=== PATIENT | female | born 1960 | race Caucasian/White ===

== ENCOUNTER 2017-08-01 10:37 | Emergency (ER) | payer OTHER, SELFPAY | END 2017-08-01 12:52 | disposition home or self-care (01) | PROVIDERS: Emergency Provider Nurse Practitioner; Visit Provider Nurse Practitioner | DX: M10.9 Gout, unspecified (principal); F17.210 Nicotine dependence, cigarettes, uncomplicated; Z88.0 Allergy status to penicillin | CPT/HCPCS: 96372; 99202 ==

== ENCOUNTER → 2017-08-02 | Outpatient (CLI) | payer OTHER, SELFPAY | PROVIDERS: Visit Provider Surgery | DX: R19.7 Diarrhea, unspecified (principal); Z86.010 Personal history of colon polyps; Z01.812 Encounter for preprocedural laboratory examination | CPT/HCPCS: 36415; 80053; 85025; 93005 ==

== ENCOUNTER 2017-08-13 16:15 | Emergency (ER) | payer OTHER, SELFPAY ==
[2017-08-13 16:20] VITALS: BP 114/73; PULSE 70; RESP 20; TEMP 36.6; O2SAT 98; BMI 30.8
[2017-08-14 00:04] LABS: Alanine Aminotransferase 46 U/L (12-78); Albumin Level 3.5 gm/dL (3.4-5.0); Alkaline Phosphatase 74 U/L (46-116); Anion Gap 12.8 mEq/L (5-15); Aspartate Amino Transferase 49 U/L (15-37); Bilirubin,Total 0.3 mg/dL (0.2-1.0); Blood Urea Nitrogen 9 mg/dL (7-18); Calcium 8.9 mg/dL (8.5-10.1); Carbon Dioxide 28 mmol/L (21.0-32.0); Chloride 103 mmol/L (98-107); Estimated Glomerular Filt Rate 42 ml/min (>60); GFR (African American) 51 ML/MIN (>60); Globulin 3.6 gm/dl (1.3-3.2); Glucose 123 mg/dL (74-106); Sodium 141 mmol/L (136-145); Total Protein,Serum 7.1 gm/dL (6.4-8.2)
[2017-08-14 00:11] LABS: Potassium 2.8 mmoL/L (3.5-5.1)
[2017-08-14 00:50] VITALS: BP 133/88; PULSE 63; O2SAT 99
[2017-08-14 01:07] LABS: Basophils % 0.6 % (0.1-2.0); Eosinophils % 2.1 % (0.1-12.0); Hematocrit 45.7 % (37.0-47.0); Lymphocytes % 31.6 K/mm3 (10-50); Mean Corpuscular HGB Conc 32.9 g/dL (31.8-35.4); Mean Corpuscular Hemoglobin 27.7 pg (27.0-31.2); Mean Corpuscular Volume 84.2 fl (81-99); Monocytes % 5.4 % (1.7-9.3); Neutrophils % 60.3 % (37.0-80.0); Platelet Count 236 K/mm3 (142-424); Red Blood Count 5.42 M/mm3 (4.20-5.40); Red Cell Distribution Width 14.6 % (11.5-17.5); White Blood Count 9.3 K/mm3 (4.8-10.8)
[2017-08-14 01:08] LABS: Basophils # 0.1 K/mm3 (0-0.2); Eosinophils # 0.2 K/mm3 (0.0-0.4); Monocytes # 0.5 K/mm3 (0.1-1.0); Neutrophils # 5.6 K/mm3 (1.8-7.8)
[2017-08-14 10:39] LABS: ABG Base Excess 1.8 mmol/L (-2.4-2.3); ABG HCO3 26.5 mmhg (22.0-26.0); ABG Oxygen Saturation 96 % (90-100); ABG PH 7.41 mmol/L (7.35-7.45); ABG PO2 79.4 mmhg (80-100); ABG TCO2 27.8 mmhg (23-27)
[2017-08-14 10:40] LABS: Allen's Test Acceptable; Carboxyhemoglobin 3.5 (0.0-5.0); Oxygen ROOM AIR %; Source Right Radial
--- NOTE | 2017-08-14 14:19 | PC.NURSE ---
All late entry data was entered per down time procedure.
== END 2017-08-13 17:48 | disposition home or self-care (01) ==
LOC: ER 22:49
PROVIDERS: Emergency Provider Emergency Medicine; Family Provider Emergency Medicine; PCP Family Medicine
DX: T59.811A Toxic effect of smoke, accidental (unintentional), initial encounter; J70.5 Respiratory conditions due to smoke inhalation; F17.210 Nicotine dependence, cigarettes, uncomplicated; Y92.89 Other specified places as the place of occurrence of the external cause; Z79.899 Other long term (current) drug therapy
CPT/HCPCS: 80053; 82375; 82803; 85025; 99282

== ENCOUNTER 2017-09-23 12:03 | Emergency (ER) | payer OTHER, SELFPAY ==
[2017-09-23 12:25] VITALS: BP 110/68; PULSE 78; RESP 18; TEMP 36.4; O2SAT 98; BMI 30.9
[2017-09-23 12:25] LABS: Apearance,Urine Clear (Clear); Bilirubin,Urine 1+ (Negative); Blood, Urine 2+ (Negative); Color,Urine Yellow (Yellow); Glucose,Urine (UA) Negative (Negative); Ketones,Urine Negative (Negative); Protein,Urine 1+ (Negative)
[2017-09-23 12:26] LABS: UTC Leukocyte Esterase,Urine 1+ (Negative); UTC Nitrate,Urine Negative (Negative); Urobilinogen,Urine 0.2 EU/dl (0.2)
--- NOTE | 2017-09-23 12:29 | HMH.EDUTC ---
[facility] Disposition Clinical Impression: Hypokalemia, Abnormal laboratory test Disposition: Still a Patient Condition on Discharge: Good Referrals: Benjamín Arguello MD [Primary Care Provider] - Time of Disposition: 13:23 Medical Decision Making - Medical Records Medical records reviewed: Yes: I reviewed the patient's medical records. Vital Signs: 09/23/17 12:25 Temperature 97.5 F L Temperature Source Temporal Artery Scan Pulse Rate [Right Radial] 78 Respiratory Rate 18 Blood Pressure [Right Arm] 110/68 Blood Pressure Mean [Right Arm] 82 Blood Pressure Source [Right Arm] Automatic Cuff Blood Pressure Position [Right Arm] Sitting 02 Sat by Pulse Oximetry 98 Oxygen Delivery Method Room Air - Lab Data Lab Results 09/23/17 12:19: Urine Color Yellow, Urine Appearance Clear, Urine pH 5.0, Ur Specific [place] 1.020, Urine Protein 1+, Urine Glucose (UA) Negative, Urine Ketones Negative, Urine Blood 2+, Urine Nitrate Negative, Urine Bilirubin 1+ A, Urine Urobilinogen 0.2, Ur Leukocyte Esterase 1+ A, Influenza Type A Ag Negative, Influenza Type B Ag Negative 09/23/17 12:40: Potassium 2.8 L* Result diagrams: 09/23/17 12:40 Orders (Tests/Meds): ORDERS Category Date Time Status Chest XR 2 view (NOT portable) [XR chest 2V] Stat Exams 09/23/17 12:32 Taken - Physician Consults Physician Consulted: Dr Oliveors ER physician Time: 13:16 Reason -: Other (Lab results) Comment/Response: Patient Lab result of K-2.8 that was called by lab Dr Oliveros recommended sending patient to ER for Potassium and further treatment, Report given to Dr Oliveros and Santana HERNDON and patient informed of recommedation for ER transfer and she agreed with transfer - Niraj Inquiry Pt receiving controlled substance: No Niraj was queried for this patient: No - Reevaluation(s) Time: 13:19 Reevaluation #1: Patient was sent to ER after consulting and speaking with Dr Oliveros due to Potassium of 2.8 that was called to [facility] by lab. Patient report given and patient transfered to ER for further treatment and evaluation [facility] HPI - General Stated complaint: Fever, Congestion, - History of Present Illness Provider Complaint: Patient state that she has been having fever and congestion along with body aches States that she has been feeling weak and like she may have bronchitits State that she has recently been on Potassium because her Potassium was low and she wants to have that checked too State that over all she just feels bad - Related Data Home Medications Medication Instructions Recorded Confirmed acetaminophen 300 mg-codeine 30 mg 1 tab PO TID PRN tab 08/31/17 tablet bupropion HCl 75 mg tablet 75 mg PO BID tab 08/31/17 cholecalciferol (vitamin D3) 1,000 1,000 unit PO QDAY cap 08/31/17 unit capsule ergocalciferol (vitamin D2) 50,000 50,000 unit PO QWEEK 08/31/17 unit capsule hydroxyzine pamoate 50 mg capsule 50 mg PO TID-QID PRN 08/31/17 lamotrigine 25 mg tablet 25 mg PO QDAY tab 08/31/17 potassium chloride ER 20 mEq 10 meq PO QDAY 08/31/17 tablet,extended release(part/cryst) trazodone 50 mg tablet 50 mg PO QHS PRN 08/31/17 Previous Rx's Medication Instructions Recorded albuterol sulfate HFA 90 2 puff INHALATION Q6H 30 Days #6.7 08/31/17 mcg/actuation aerosol inhaler g logimafesnkiapr-rfpbqbwernylumh-AS 5 ml PO Q6H PRN #180 ml 08/31/17 2 mg-30 mg-10 mg/5 mL syrup prednisone 20 mg tablet 20 mg PO BID #10 tab 08/31/17 Allergies Allergy/AdvReac Type Severity Reaction Status Date / Time penicillin G Allergy Mild Verified 08/31/17 13:43 [facility] History I have reviewed the patient's past medical history: Yes Laterality Cases: Right: Lumpectomy Amputation: No Fractures: No - *Social History Smoking Status: Current every day smoker Tobacco Type: cigarettes # Packs/Day (cigarettes): 1 Alcohol Intake: never Substance Use Type: denies use *Family Hx:: Diabetes, Coronary Artery Disease
--- NOTE | 2017-09-23 12:32 | ED_ITS ---
[facility] [place] Disposition Clinical Impression: Hypokalemia, Abnormal laboratory test Disposition: Still a Patient Condition on Discharge: Good Referrals: Benjamín Arguello MD [Primary Care Provider] - Time of Disposition: 13:23 Medical Decision Making - Medical Records Medical records reviewed: Yes: I reviewed the patient's medical records. Vital Signs: 09/23/17 12:25 Temperature 97.5 F L Temperature Source Temporal Artery Scan Pulse Rate [Right Radial] 78 Respiratory Rate 18 Blood Pressure [Right Arm] 110/68 Blood Pressure Mean [Right Arm] 82 Blood Pressure Source [Right Arm] Automatic Cuff Blood Pressure Position [Right Arm] Sitting 02 Sat by Pulse Oximetry 98 Oxygen Delivery Method Room Air - Lab Data Lab Results 09/23/17 12:19: Urine Color Yellow, Urine Appearance Clear, Urine pH 5.0, Ur Specific [place] 1.020, Urine Protein 1+, Urine Glucose (UA) Negative, Urine Ketones Negative, Urine Blood 2+, Urine Nitrate Negative, Urine Bilirubin 1+ A, Urine Urobilinogen 0.2, Ur Leukocyte Esterase 1+ A, Influenza Type A Ag Negative , Influenza Type B Ag Negative 09/23/17 12:40: Potassium 2.8 L* Result diagrams: 09/23/17 12:40 Orders (Tests/Meds): ORDERS Category Date Time Status Chest XR 2 view (NOT portable) [XR chest 2V] Stat Exams 09/23/17 12:32 Taken - Physician Consults Physician Consulted: Dr Oliveros ER physician Time: 13:16 Reason -: Other (Lab results) Comment/Response: Patient Lab result of K-2.8 that was called by lab Dr Oliveros recommended sending patient to ER for Potassium and further treatment, Report given to Dr Oliveros and Santana HERNDON and patient informed of recommedation for ER transfer and she agreed with transfer - Niraj Inquiry Pt receiving controlled substance: No Niraj was queried for this patient: No - Reevaluation(s) Time: 13:19 Reevaluation #1: Patient was sent to ER after consulting and speaking with Dr Oliveros due to Potassium of 2.8 that was called to [facility] by lab. Patient report given and patient transfered to ER for further treatment and evaluation [facility] [place] HPI - General Stated complaint: Fever, Congestion, - History of Present Illness Provider Complaint: Patient state that she has been having fever and congestion along with body aches States that she has been feeling weak and like she may have bronchitits State that she has recently been on Potassium because her Potassium was low and she wants to have that checked too State that over all she just feels bad - Related Data Home Medications Medication Instructions Recorded Confirmed acetaminophen 300 mg-codeine 30 mg 1 tab PO TID PRN tab 08/31/17 tablet bupropion HCl 75 mg tablet 75 mg PO BID tab 08/31/17 cholecalciferol (vitamin D3) 1,000 1,000 unit PO QDAY cap 08/31/17 unit capsule ergocalciferol (vitamin D2) 50,000 50,000 unit PO QWEEK 08/31/17 unit capsule hydroxyzine pamoate 50 mg capsule 50 mg PO TID-QID PRN 08/31/17 lamotrigine 25 mg tablet 25 mg PO QDAY tab 08/31/17 potassium chloride ER 20 mEq 10 meq PO QDAY 08/31/17 tablet,extended release(part/cryst) trazodone 50 mg tablet 50 mg PO QHS PRN 08/31/17 Previous Rx's Medication Instructions Recorded albuterol sulfate HFA 90 2 puff INHALATION Q6H 30 Days #6.7 08/31/17 mcg/actuatio
--- NOTE | 2017-09-23 12:32 | XR_ITS ---
XR chest 2V INDICATION: Congestion ORDERING PHYSICIAN: Kelly Dumas PATIENT AGE: 57 years FINDINGS: The cardiovascular structures are unremarkable. No mediastinal shift or hilar mass is evident. The lungs are well expanded and clear bilaterally. The costophrenic sulci are sharp. No significant bony anomalies are apparent. IMPRESSION: Negative chest.
[2017-09-23 13:03] LABS: UTC Influenza A Antigen Negative (Negative); UTC Influenza B Antigen Negative (Negative)
[2017-09-23 13:08] LABS: Potassium 2.8 mmoL/L (3.5-5.1)
[2017-09-23 13:25] VITALS: BP 136/67; PULSE 75; RESP 20; TEMP 36.7; O2SAT 100; BMI 31.0
--- NOTE | 2017-09-23 13:33 | HMH.EDWEAK ---
ED Disposition Clinical Impression: Hypokalemia, Abnormal laboratory test Disposition: Still a Patient Condition on Discharge: Good Instructions: Urinary Tract Infection Additional Instructions: followup with Dr Arguello, return for increased urinary issues, fever or chills not improved Prescriptions: Ciprofloxacin [Cipro 250mg/5ml Oral Susp] 250 mg PO BID #10 cap Potassium Chloride [K-Tab ER 20 mEq] 20 meq PO DAILY #30 tab Referrals: Benjamín Arguello MD [Primary Care Provider] - - Critical Care Critical Care Time: No Attestation: On 09/23/17, the high probability of a clinically significant, sudden or life threatening deterioration of the following system(s) required my full and direct attention, intervention and personal management. The time I documented below is in addition to time spent performing reported procedures but includes the following listed in this critical care notation. Medical Decision Making Vital Signs: 09/23/17 12:25 09/23/17 13:25 Temperature 97.5 F L 98.1 F Temperature Source Temporal Artery Scan Oral Pulse Rate [Right Radial] 78 75 Respiratory Rate 18 20 Blood Pressure [Right Arm] 110/68 136/67 Blood Pressure Mean [Right Arm] 82 90 Blood Pressure Source [Right Arm] Automatic Cuff Automatic Cuff Blood Pressure Position [Right Arm] Sitting Sitting 02 Sat by Pulse Oximetry 98 100 Oxygen Delivery Method Room Air Room Air - Lab Data Lab Results 09/23/17 12:19: Urine Color Yellow, Urine Appearance Clear, Urine pH 5.0, Ur Specific [place] 1.020, Urine Protein 1+, Urine Glucose (UA) Negative, Urine Ketones Negative, Urine Blood 2+, Urine Nitrate Negative, Urine Bilirubin 1+ A, Urine Urobilinogen 0.2, Ur Leukocyte Esterase 1+ A, Influenza Type A Ag Negative, Influenza Type B Ag Negative 09/23/17 12:40: Potassium 2.8 L* 09/23/17 14:20: WBC 15.4 H, RBC 5.15, Hgb 14.4, Hct 42.3, MCV 82.1, MCH 27.9, MCHC 34.0, RDW 14.6, Plt Count 218, MPV 9.3, Neut % (Auto) 83.5 H, Lymph % (Auto) 11.0, [place] % (Auto) 5.1, Eos % (Auto) 0.3, Baso % (Auto) 0.1, Neut # (Auto) 12.9 H, Lymph # (Auto) 1.7, [place] # (Auto) 0.8, Eos # (Auto) 0.0, Baso # (Auto) 0.0 Result diagrams: 09/23/17 14:20 09/23/17 12:40 Orders (Tests/Meds): ED MEDICATIONS Generic Name Dose Route Start Last Admin Trade Name Freq PRN Reason Stop Dose Admin Potassium Chloride/Water 100 mls @ 50 mls/hr 09/23/17 13:34 09/23/17 14:13 Potassium Chloride 20meq/100ml Ivpb IV 09/23/17 15:33 50 mls/hr ONCE ONE Administration ORDERS Category Date Time Status Chest XR 2 view (NOT portable) [XR chest 2V] Stat Exams 09/23/17 12:32 Taken CBC [Complete Blood Count Auto Diff] Stat Lab 09/23/17 14:20 Results Blood Culture Stat Micro 09/23/17 14:20 Received - Niraj Inquiry Pt receiving controlled substance: No Niraj was queried for this patient: No Weakness HPI - General Chief complaint: Weakness Stated complaint: Fever, Congestion, Mode of Arrival: Family Vehicle Source of Information: Patient Limitations: No Limitations Description of Symptoms (Recalled from ER Triage Doc. by RN): pt sent to er for low potassium of 2.8 and body aches all over. - History of Present Illness MD Complaint: generalized weakness, lack of energy (this what she feels like wehn her potassium is low, she has not taken any for 3 weeks found to be 2.8) Duration: constant Location: generalized Migration: none Severity: moderate Quality: aching Relieving factors: none Exacerbating factors: none Context: other (she also has congestion and low back pain/flank pain) - Related Data Home Medications Medication Instructions Recorded Confirmed acetaminophen 300 mg-codeine 30 mg 1 tab PO TID PRN tab 08/31/17 tablet bupropion HCl 75 mg tablet 75 mg PO BID tab 08/31/17 cholecalciferol (vitamin D3) 1,000 1,000 unit PO QDAY cap 08/31/17 unit capsule ergocalciferol (vitamin D2) 50,000 50,000 unit PO QWEEK 08/31/17 unit capsule
--- NOTE | 2017-09-23 13:37 | ED_ITS ---
ED Disposition Clinical Impression: Hypokalemia, Abnormal laboratory test Disposition: Still a Patient Condition on Discharge: Good Instructions: Urinary Tract Infection Additional Instructions: followup with Dr Arguello, return for increased urinary issues, fever or chills not improved Prescriptions: Ciprofloxacin [Cipro 250mg/5ml Oral Susp] 250 mg PO BID #10 cap Potassium Chloride [K-Tab ER 20 mEq] 20 meq PO DAILY #30 tab Referrals: Benjamín Arguello MD [Primary Care Provider] - - Critical Care Critical Care Time: No Attestation: On 09/23/17, the high probability of a clinically significant, sudden or life threatening deterioration of the following system(s) required my full and direct attention, intervention and personal management. The time I documented below is in addition to time spent performing reported procedures but includes the following listed in this critical care notation. Medical Decision Making Vital Signs: 09/23/17 12:25 09/23/17 13:25 Temperature 97.5 F L 98.1 F Temperature Source Temporal Artery Scan Oral Pulse Rate [Right Radial] 78 75 Respiratory Rate 18 20 Blood Pressure [Right Arm] 110/68 136/67 Blood Pressure Mean [Right Arm] 82 90 Blood Pressure Source [Right Arm] Automatic Cuff Automatic Cuff Blood Pressure Position [Right Arm] Sitting Sitting 02 Sat by Pulse Oximetry 98 100 Oxygen Delivery Method Room Air Room Air - Lab Data Lab Results 09/23/17 12:19: Urine Color Yellow, Urine Appearance Clear, Urine pH 5.0, Ur Specific [place] 1.020, Urine Protein 1+, Urine Glucose (UA) Negative, Urine Ketones Negative, Urine Blood 2+, Urine Nitrate Negative, Urine Bilirubin 1+ A, Urine Urobilinogen 0.2, Ur Leukocyte Esterase 1+ A, Influenza Type A Ag Negative , Influenza Type B Ag Negative 09/23/17 12:40: Potassium 2.8 L* 09/23/17 14:20: WBC 15.4 H, RBC 5.15, Hgb 14.4, Hct 42.3, MCV 82.1, MCH 27.9, MCHC 34.0, RDW 14.6, Plt Count 218, MPV 9.3, Neut % (Auto) 83.5 H, Lymph % (Auto ) 11.0, [place] % (Auto) 5.1, Eos % (Auto) 0.3, Baso % (Auto) 0.1, Neut # (Auto) 12.9 H, Lymph # (Auto) 1.7, [place] # (Auto) 0.8, Eos # (Auto) 0.0, Baso # (Auto) 0.0 Result diagrams: 09/23/17 14:20 09/23/17 12:40 Orders (Tests/Meds): ED MEDICATIONS Generic Name Dose Route Start Last Admin Trade Name Freq PRN Reason Stop Dose Admin Potassium Chloride/Water 100 mls @ 50 mls/hr 09/23/17 13:34 09/23/17 14:13 Potassium Chloride 20meq/100ml Ivpb IV 09/23/17 15:33 50 mls/hr ONCE ONE Administration ORDERS Category Date Time Status Chest XR 2 view (NOT portable) [XR chest 2V] Stat Exams 09/23/17 12:32 Taken CBC [Complete Blood Count Auto Diff] Stat Lab 09/23/17 14:20 Results Blood Culture Stat Micro 09/23/17 14:20 Received - Niraj Inquiry Pt receiving controlled substance: No Niraj was queried for this patient: No Weakness HPI - General Chief complaint: Weakness Stated complaint: Fever, Congestion, Mode of Arrival: Family Vehicle Source of Information: Patient Limitations: No Limitations Description of Symptoms (Recalled from ER Triage Doc. by RN): pt sent to er for low potassium of 2.8 and body aches all over. - History of Present Illness MD Complaint: generalized weakness, lack of energy (this what she feels like wehn her potassium is low, she has not taken any for 3 weeks found to be 2.8) Duration: constant
[2017-09-23 14:53] LABS: Basophils % 0.1 % (0.1-2.0); Eosinophils % 0.3 % (0.1-12.0); Hematocrit 42.3 % (37.0-47.0); Hemoglobin 14.4 g/dL (12.2-16.2); Lymphocytes # 1.7 K/mm3 (0.7-4.5); Mean Corpuscular Hemoglobin 27.9 pg (27.0-31.2); Mean Corpuscular Volume 82.1 fl (81-99); Mean Platelet Volume 9.3 fl (7.4-10.4); Monocytes # 0.8 K/mm3 (0.1-1.0); Monocytes % 5.1 % (1.7-9.3); Neutrophils # 12.9 K/mm3 (1.8-7.8); Neutrophils % 83.5 % (37.0-80.0); Platelet Count 218 K/mm3 (142-424); Red Blood Count 5.15 M/mm3 (4.20-5.40); Red Cell Distribution Width 14.6 % (11.5-17.5); White Blood Count 15.4 K/mm3 (4.8-10.8)
[2017-09-23 14:59] LABS: MANUAL DIFFERENTIAL MANUAL DIFFERENTIAL (MANUAL DIFF)
[2017-09-23 15:15] LABS: Lymphocytes % 11 % (10-50); Monocytes % 3 % (2-9); Neutrophils % 83 % (42-76); Platelet Estimate Normal; RBC Morphology Normal; Total Cells Counted 100
[2017-09-23 16:04] VITALS: BP 94/52; PULSE 69; RESP 18; TEMP 36.7; O2SAT 96
== END 2017-09-23 16:05 | disposition home or self-care (01) ==
LOC: UTC 12:06 → ER 13:17
PROVIDERS: Nurse Practitioner; Emergency Provider Family Medicine; Family Provider Emergency Medicine; PCP Emergency Medicine
DX: E87.6 Hypokalemia (principal); R50.9 Fever, unspecified; F17.210 Nicotine dependence, cigarettes, uncomplicated; Z88.0 Allergy status to penicillin; Z79.899 Other long term (current) drug therapy
CPT/HCPCS: 36415; 71046; 81003; 84132; 85007; 85025; 87040; 87804; 96365; 99283

== ENCOUNTER → 2017-10-04 07:52 | Outpatient (REF) | payer OTHER, SELFPAY ==
[2017-10-04 09:13] LABS: Basophils # 0.1 K/mm3 (0-0.2); Basophils % 0.4 % (0.1-2.0); Eosinophils # 0.1 K/mm3 (0.0-0.4); Eosinophils % 0.8 % (0.1-12.0); Hematocrit 45.3 % (37.0-47.0); Hemoglobin 14.5 g/dL (12.2-16.2); Lymphocytes # 2.4 K/mm3 (0.7-4.5); Lymphocytes % 18.6 K/mm3 (10-50); Mean Corpuscular Hemoglobin 27.4 pg (27.0-31.2); Mean Corpuscular Volume 85.4 fl (81-99); Mean Platelet Volume 9.7 fl (7.4-10.4); Monocytes # 0.4 K/mm3 (0.1-1.0); Monocytes % 3.2 % (1.7-9.3); Platelet Count 337 K/mm3 (142-424); Red Blood Count 5.31 M/mm3 (4.20-5.40); Red Cell Distribution Width 14.5 % (11.5-17.5)
[2017-10-05 11:54] LABS: Vitamin D 25 Hydroxy 14.7 ng/mL (30.0-100.0)
== END ==
LOC: LAB 07:52
PROVIDERS: Visit Provider Emergency Medicine
DX: D72.829 Elevated white blood cell count, unspecified (principal)
CPT/HCPCS: 82652; 85025

== ENCOUNTER → 2017-10-13 12:37 | Outpatient (CLI) | payer OTHER, SELFPAY | PROVIDERS: Family Provider Emergency Medicine; PCP Emergency Medicine; Visit Provider Emergency Medicine | DX: R06.2 Wheezing (principal) | CPT/HCPCS: 94060; 94727; 94729 ==

== ENCOUNTER → 2017-10-24 11:40 | Outpatient (CLI) | payer OTHER, SELFPAY ==
[2017-10-24 12:38] LABS: Alanine Aminotransferase 20 U/L (12-78); Albumin Level 3.5 gm/dL (3.4-5.0); Albumin/Globulin Ratio 0.9 (1.1-1.8); Alkaline Phosphatase 92 U/L (46-116); Anion Gap 12.8 mEq/L (5-15); Aspartate Amino Transferase 12 U/L (15-37); Bilirubin,Total 0.3 mg/dL (0.2-1.0); Blood Urea Nitrogen 12 mg/dL (7-18); C-Reactive Protein 0.9 mg/L (0.0-0.9); Calcium 9.1 mg/dL (8.5-10.1); Carbon Dioxide 28 mmol/L (21.0-32.0); Chloride 103 mmol/L (98-107); Chol/HDL Ratio 7.5 (1-3.5); Cholesterol 269 mg/dL (140-200); Creatinine,Serum 1.13 mg/dL (0.55-1.02); Estimated Glomerular Filt Rate 49 ml/min (>60); Free T4 (Free Thyroxine) 1.06 ng/dl (0.76-1.46); GFR (African American) 60 ML/MIN (>60); Globulin 4.1 gm/dl (1.3-3.2); Glucose 124 mg/dL (74-106); HDL Cholesterol 36 mg/dL (29-89); LDL Cholesterol 197 mg/dL (0-130); Sodium 141 mmol/L (136-145); Thyroid Stimulating Hormone 0.59 uIU/ml (0.358-3.740); Total Protein,Serum 7.6 gm/dL (6.4-8.2); Triglycerides 180 mg/dL (30-200); VLDL Cholesterol 36 mg/dL (0-40)
[2017-10-24 12:40] LABS: Potassium 2.8 mmoL/L (3.5-5.1)
== END ==
PROVIDERS: Visit Provider Emergency Medicine
DX: D72.829 Elevated white blood cell count, unspecified (principal)
CPT/HCPCS: 36415; 80053; 80061; 84439; 84443; 86140

== ENCOUNTER → 2018-04-03 12:11 | Outpatient (REF) | payer OTHER, SELFPAY | LOC: LAB 12:11 | PROVIDERS: Visit Provider Nurse Practitioner Family | DX: R53.1 Weakness (principal) | CPT/HCPCS: 87086; 87088; 87186 ==

== ENCOUNTER → 2018-08-21 11:28 | Outpatient (CLI) | payer OTHER, SELFPAY ==
--- NOTE | 2018-08-21 11:45 | XR_ITS ---
XR foot wt bearing LT 3V HISTORY: ITS.REASON: pain ORDERING PHYSICIAN: Ramona Ivey DPM PATIENT AGE: 58 years COMPARISON: None FINDINGS: No fracture or dislocation. No lytic or blastic change. There is normal mineralization.. There are mild osteoarthritic changes of the first metatarsophalangeal joint with mild hypertrophy of the distal aspect of the first metatarsal. Mild hypertrophic changes are present in the talonavicular region dorsally. There is borderline pes planus. 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
--- NOTE | 2018-08-21 11:45 | XR_ITS ---
XR foot wt bearing RT 3V HISTORY: ITS.REASON: pain ORDERING PHYSICIAN: Ramona Ivey DPM PATIENT AGE: 58 years COMPARISON: None FINDINGS: There are mild osteoarthritic changes of the first metatarsophalangeal joint with hypertrophy of the distal aspect of the first metatarsal and mild soft tissue swelling medially. There is a small calcaneal spur. No fracture or dislocation. IMPRESSION: Mild osteoarthritis of the first MTP joint
[2018-08-21 13:56] LABS: Alanine Aminotransferase 21 U/L (12-78); Albumin Level 3.2 gm/dL (3.4-5.0); Alkaline Phosphatase 83 U/L (46-116); Anion Gap 10.9 mEq/L (5-15); Aspartate Amino Transferase 14 U/L (15-37); Bilirubin,Total 0.3 mg/dL (0.2-1.0); Blood Urea Nitrogen 11 mg/dL (7-18); C-Reactive Protein 0.4 mg/L (0.0-0.9); Calcium 9.5 mg/dL (8.5-10.1); Carbon Dioxide 30 mmol/L (21.0-32.0); Chloride 105 mmol/L (98-107); Creatinine,Serum 1.11 mg/dL (0.55-1.02); Estimated Glomerular Filt Rate 50 ml/min (>60); GFR (African American) 61 ML/MIN (>60); Globulin 3.3 gm/dl (1.3-3.2); Glucose 92 mg/dL (74-106); Potassium 3.9 mmoL/L (3.5-5.1); Sodium 142 mmol/L (136-145); Total Protein,Serum 6.5 gm/dL (6.4-8.2)
[2018-08-21 15:13] LABS: Basophils % 0.3 % (0.1-2.0); Eosinophils # 0.2 K/mm3 (0.0-0.4); Eosinophils % 1.6 % (0.1-12.0); Hematocrit 47.6 % (37.0-47.0); Hemoglobin 14.6 g/dL (12.2-16.2); Lymphocytes # 2.5 K/mm3 (0.7-4.5); Lymphocytes % 25.8 % (10-50); Mean Corpuscular HGB Conc 30.6 g/dL (31.8-35.4); Mean Corpuscular Hemoglobin 26.7 pg (27.0-31.2); Mean Corpuscular Volume 87.1 fl (81-99); Mean Platelet Volume 9.5 fl (7.4-10.4); Monocytes # 0.4 K/mm3 (0.1-1.0); Monocytes % 4.2 % (1.7-9.3); Neutrophils # 6.6 K/mm3 (1.8-7.8); Neutrophils % 68.1 % (37.0-80.0); Platelet Count 264 K/mm3 (142-424); Red Blood Count 5.47 M/mm3 (4.20-5.40); Red Cell Distribution Width 14.7 % (11.5-17.5); White Blood Count 9.6 K/mm3 (4.8-10.8)
[2018-08-21 16:07] LABS: Erythrocyte Sedimentation Rate 18 mm/hr (0-30)
== END ==
LOC: LAB 11:28 → RAD 11:44
PROVIDERS: PCP Emergency Medicine; Visit Provider Podiatrist
DX: M10.9 Gout, unspecified (principal); M79.672 Pain in left foot; M79.671 Pain in right foot
CPT/HCPCS: 36415; 73630; 80053; 84550; 85025; 85651; 86140

== ENCOUNTER → 2019-01-17 07:43 | Outpatient (CLI) | payer OTHER, SELFPAY ==
[2019-01-17 08:23] LABS: Basophils # 0.1 K/mm3 (0-0.2); Basophils % 0.7 % (0.1-2.0); Eosinophils # 0.2 K/mm3 (0.0-0.4); Eosinophils % 1.4 % (0.1-12.0); Hematocrit 46.8 % (37.0-47.0); Hemoglobin 15.4 g/dL (12.2-16.2); Lymphocytes # 3.4 K/mm3 (0.7-4.5); Lymphocytes % 26.9 % (10-50); Mean Corpuscular HGB Conc 32.9 g/dL (31.8-35.4); Mean Corpuscular Hemoglobin 26.4 pg (27.0-31.2); Mean Corpuscular Volume 80.2 fl (81-99); Mean Platelet Volume 7.8 fl (7.4-10.4); Monocytes # 0.7 K/mm3 (0.1-1.0); Monocytes % 5.6 % (1.7-9.3); Neutrophils # 8.2 K/mm3 (1.8-7.8); Neutrophils % 65.3 % (37.0-80.0); Platelet Count 266 K/mm3 (142-424); Red Blood Count 5.84 M/mm3 (4.20-5.40); Red Cell Distribution Width 14.7 % (11.5-17.5); White Blood Count 12.6 K/mm3 (4.8-10.8)
[2019-01-17 08:30] LABS: Hemoglobin A1C 5.7 % (0.0-7.0)
[2019-01-17 12:50] LABS: Alanine Aminotransferase 25 U/L (12-78); Albumin Level 3.5 gm/dL (3.4-5.0); Alkaline Phosphatase 98 U/L (46-116); Anion Gap 13.1 mEq/L (5-15); Aspartate Amino Transferase 20 U/L (15-37); Bilirubin,Total 0.4 mg/dL (0.2-1.0); Blood Urea Nitrogen 11 mg/dL (7-18); Calcium 9.3 mg/dL (8.5-10.1); Carbon Dioxide 30 mmol/L (21.0-32.0); Chloride 102 mmol/L (98-107); Chol/HDL Ratio 8.1 (1-3.5); Cholesterol 306 mg/dL (140-200); Creatinine,Serum 1.07 mg/dL (0.55-1.02); Estimated Glomerular Filt Rate 52 ml/min (>60); Free Thyroxine Index 2.4 ug/dL (5.93-13.13); GFR (African American) 64 ML/MIN (>60); Globulin 3.5 gm/dl (1.3-3.2); Glucose 99 mg/dL (74-106); HDL Cholesterol 38 mg/dL (29-89); LDL Cholesterol 202 mg/dL (0-130); Potassium 3.1 mmoL/L (3.5-5.1); Sodium 142 mmol/L (136-145); T4 (Thyroxine) 8.3 ug/dl (4.7-13.3); Thyroid Stimulating Hormone 3.91 uIU/ml (0.358-3.740); Triglycerides 329 mg/dL (30-200); Triiodothryronine (T3) Uptake 29 % (31-39); VLDL Cholesterol 66 mg/dL (0-40)
[2019-01-17 13:35] LABS: Amphetamine/Metha Screen,Urine Negative ng/mL (<1000); Barbiturates Screen,Urine Negative ng/mL (<200); Benzodiazepines Screen,Urine Negative ng/mL (<200); Cannabinoid Screen,Urine Negative ng/mL (<50); Cocaine Screen,Urine Negative ng/mL (<300); Methadone Screen,Urine Negative ng/mL (<300); Opiate Screen,Urine Negative ng/mL (<300); Phencyclidine Screen,Urine Negative ng/mL (<25)
== END ==
PROVIDERS: Visit Provider Nurse Practitioner Psychiatric/Mental Health
DX: F31.60 Bipolar disorder, current episode mixed, unspecified (principal)
CPT/HCPCS: 36415; 80053; 80061; 80305; 83036; 84436; 84443; 84479; 85025

== ENCOUNTER → 2019-01-25 09:37 | Outpatient (CLI) | payer OTHER, SELFPAY ==
[2019-01-27 21:41] LABS: Lithium (Eskalith(R)) 0.9 mmol/L (0.6-1.2)
== END ==
PROVIDERS: Visit Provider Nurse Practitioner Psychiatric/Mental Health
DX: F31.60 Bipolar disorder, current episode mixed, unspecified (principal)
CPT/HCPCS: 36415; 80178

== ENCOUNTER 2019-11-16 11:26 | Emergency (ER) | payer OTHER, SELFPAY ==
[2019-11-16 11:34] VITALS: BP 129/90; PULSE 95; RESP 20; TEMP 36.8; O2SAT 97; BMI 29.2
--- NOTE | 2019-11-16 11:55 | HMH.EDUTC ---
[facility] [place] Disposition Clinical Impression: Gout Qualifiers: Gout site: foot Gout etiology: unspecified cause Chronicity: acute Laterality: right Qualified Code(s): M10.9 - Gout, unspecified Disposition: Home, Self-Care Condition on Discharge: Good Instructions: Gout, DI for Gout Additional Instructions: Drink plenty of fluids. Don't start the oral steroids until tomorrow. Take the medications as directed. Follow up with your regular doctor. GO TO THE ER FOR ANY WORSENING SYMPTOMS Prescriptions: methylPREDNISolone [Medrol] 4 mg PO DIRECTED 6 Days #21 tab.[email or web address] Transmission Status: Received by [facility] #[id number] Referrals: Benjamín Arguello MD [Primary Care Provider] - Forms: Work/School Release Time of Disposition: 11:58 Medical Decision Making - Medical Records Medical records reviewed: No: I reviewed the patient's medical records. - Niraj Inquiry Pt receiving controlled substance: No Vital Signs: 11/16/19 11:34 11/16/19 12:00 Temperature 98.2 F 98.2 F Temperature Source Oral Pulse Rate 95 H Pulse Rate [Right Brachial] 95 H Respiratory Rate 20 20 Blood Pressure 129/90 Blood Pressure [Right Arm] 129/90 Blood Pressure Mean [Right Arm] 103 Blood Pressure Source [Right Arm] Automatic Cuff Blood Pressure Position [Right Arm] Sitting 02 Sat by Pulse Oximetry 97 Oxygen Delivery Method Room Air Orders (Tests/Meds): ED MEDICATIONS Discontinued Medications Generic Name Dose Route Start Last Admin Trade Name Freq PRN Reason Stop Dose Admin Methylprednisolone Sodium Succinate 125 mg 11/16/19 11:55 11/16/19 12:02 Solu-Medrol 125mg/2ml Vial IM 11/16/19 11:56 125 mg ONCE ONE Administration [facility] [place] HPI - General Stated complaint: gout symptoms right leg Time Seen by Provider: 11/16/19 11:55 Mode of Arrival: Ambulatory Source of Information: Patient Limitations: No Limitations Description of Symptoms (Recalled from Triage Doc. by RN): PATIENT C/O PAIN TO RIGHT FOOT AND KNEE, POSSIBLE GOUT FLARE UP HEENT Symptoms (Recalled from RN notes): No Resp Symptoms (Recalled from RN notes): No Skin Symptoms (Recalled from RN notes): No MS Symptoms (Recalled from RN notes): Yes Functional Status (Recalled from RN notes): WNL - History of Present Illness Provider Complaint: She c/o left foot pain since yesterday. She has a history of gout and states that she is having a flare up right now. She stopped her daily gout medication several weeks ago. She denies any injury. - Related Data Home Medications Medication Instructions Recorded Confirmed trazodone 50 mg tablet 150 mg PO BID 08/31/17 11/16/19 ARIPiprazole [Abilify 20mg Tablet] 20 mg PO DAILY 10/30/19 11/16/19 Previous Rx's Medication Instructions Recorded methylPREDNISolone [Medrol] 4 mg PO DIRECTED 6 Days #21 11/16/19 tab.[email or web address] Allergies Allergy/AdvReac Type Severity Reaction Status Date / Time penicillin G Allergy Mild Verified 10/30/19 17:25 - Worker's Comp Is this a Worker's Comp case?: No [facility] History - Hepatitis A Screen Drug use history?: No High risk sexual behaviors?: No History of sexually transmitted infection?: No Currently employed?: No Childcare worker?: No Do you have indoor plumbing?: Yes Do you have electricity?: Yes Attestation statement:: This patient has been screened for Hepatitis A risk factors. I have reviewed the patient's past medical history: Yes Medical History: Reports:: Depression Denies:: Cancer, Diabetes Mellitus Type 1, Diabetes Mellitus Type 2, MRSA Other Medical History: Reports: Other Comment: Hearing impairment, Vitamin D Deficiency, Hypokalemia Laterality Cases: Right: Lumpectomy, Bilateral: Tonsillectomy Other Surgeries: Yes: Bariatric Surgery Amputation: No Fractures: No Comment: Back surgery, Weight loss surgery - Social History Smoking Status: Current every day smoker Tobacco Type: cigarettes # Packs/Day (cigarettes):
[2019-11-16 12:00] VITALS: BP 129/90; PULSE 95; RESP 20; TEMP 36.8; O2SAT 97
== END 2019-11-16 12:01 | disposition home or self-care (01) ==
PROVIDERS: Emergency Provider Nurse Practitioner Family; PCP Emergency Medicine
DX: M10.9 Gout, unspecified (principal); Z79.899 Other long term (current) drug therapy; Z88.0 Allergy status to penicillin
CPT/HCPCS: 96372; 99201

== ENCOUNTER 2019-11-29 14:08 | Emergency (ER) | payer OTHER, SELFPAY ==
--- NOTE | 2019-11-29 13:59 | ECG_ITS ---
APPROVED REPORT Exam: Resting ECG HR:73 bpm ECG Measurements Heart Rate 73 AXES LA 142 P 18 QRSd 94 QRS -58 QT 418 T 50 QTc 460 <Conclusion> Normal sinus rhythm Left axis deviation,LAHB Pulmonary disease pattern Abnormal ECG Electronically signed by : Walter Martinez, 12/01/2019 17:22:58
[2019-11-29 14:03] VITALS: BP 141/87; PULSE 73; RESP 20; TEMP 36.8; O2SAT 95; BMI 30.1
--- NOTE | 2019-11-29 14:16 | XR_ITS ---
PROCEDURE: XR CHEST PORTABLE CLINICAL HISTORY: SOA shortness of air, smoker COMPARISON: XR CHEST 2V from 03/30/2019 CT ANGIO CHEST from 03/30/2019 XR CHEST PORTABLE from 10/30/2019 XR CHEST 2V from 11/09/2019 FINDINGS: The cardiomediastinal silhouette and pulmonary vascularity are within normal limits. The lungs are clear without infiltrates, suspicious nodules, or pleural effusions. No acute bony abnormalities. IMPRESSION: No acute findings. Dictated by: William Wells MD 11/29/2019 14:43 Electronically signed by William Wells MD in [place] 11/29/2019 14:43
[2019-11-29 14:23] LABS: ABG Base Excess 4.3 mmol/L (-2.4-2.3); ABG HCO3 28.2 mmhg (22.0-26.0); ABG Oxygen Saturation 97 % (90-100); ABG PCO2 41.1 mmhg (35.0-45.0); ABG PH 7.45 mmol/L (7.35-7.45); ABG PO2 80.1 mmhg (80-100); ABG TCO2 29.4 mmhg (23-27)
[2019-11-29 14:24] LABS: Allen's Test Acceptable; Oxygen 2LPM NC %
[2019-11-29 14:25] LABS: Source Right Radial
[2019-11-29 14:26] LABS: Basophils # 0.1 K/mm3 (0-0.2); Basophils % 0.9 % (0.1-2.0); Eosinophils # 0.2 K/mm3 (0.0-0.4); Eosinophils % 1.8 % (0.1-12.0); Hematocrit 46.3 % (37.0-47.0); Hemoglobin 15.3 g/dL (12.2-16.2); Lymphocytes # 2.6 K/mm3 (0.7-4.5); Lymphocytes % 26.8 % (10-50); Mean Corpuscular Volume 84.7 fl (81-99); Mean Platelet Volume 8.8 fl (7.4-10.4); Monocytes # 0.5 K/mm3 (0.1-1.0); Monocytes % 4.8 % (1.7-9.3); Neutrophils # 6.3 K/mm3 (1.8-7.8); Neutrophils % 65.7 % (37.0-80.0); Platelet Count 277 K/mm3 (142-424); Red Blood Count 5.47 M/mm3 (4.20-5.40); Red Cell Distribution Width 15.3 % (11.5-17.5); White Blood Count 9.6 K/mm3 (4.8-10.8)
[2019-11-29 14:28] LABS: Chloride 101 mmol/L (98-107); Sodium 138 mmol/L (136-145)
[2019-11-29 14:29] LABS: Potassium 2.9 mmoL/L (3.5-5.1)
[2019-11-29 14:29] LABS: Microscopic, Urine URINE MICROSCOPIC (MICROSCOPIC)
[2019-11-29 14:31] LABS: Alanine Aminotransferase 18 U/L (12-78); Albumin/Globulin Ratio 1.3 (1.1-1.8); Alkaline Phosphatase 76 U/L (38-126); Anion Gap 14.9 mEq/L (5-15); Aspartate Amino Transferase 21 U/L (14-36); Bilirubin,Total 0.4 mg/dl (0.2-1.3); Blood Urea Nitrogen 9 mg/dl (7-17); Calcium 9.3 mg/dl (8.4-10.2); Carbon Dioxide 25 mmol/L (22.0-30.0); Creatinine Clearance Estimated 73 mL/min (50-200); Estimated Glomerular Filt Rate 57 ml/min (>60); GFR (African American) 68 ML/MIN (>60); Globulin 3.2 g/dL (1.3-3.2); Glucose 100 mg/dl (74-100); Total Protein,Serum 7.2 g/dl (6.3-8.2)
[2019-11-29 14:32] LABS: Lactic Acid 1.1 mmol/L (0.7-2.1)
[2019-11-29 14:33] LABS: Appearance,Urine CLEAR (Clear); Bilirubin,Urine Negative (Negative); Blood, Urine Negative (Negative); Color,Urine YELLOW (Yellow); Glucose,Urine (UA) Negative (Negative); Ketones,Urine Negative (Negative); Leukocyte Esterase,Urine Negative (Negative); Nitrate,Urine Negative (Negative); Protein,Urine Negative (Negative); Urobilinogen,Urine 0.2 EU/dl (0.2)
[2019-11-29 14:36] LABS: C-Reactive Protein 2.5 mg/L (0-4)
[2019-11-29 14:38] LABS: Strep Scrn Group A (Rapid) Negative (Negative)
[2019-11-29 14:40] LABS: Bacteria,Urine Trace /lpf; Mucus,Urine Trace /lpf
[2019-11-29 14:43] LABS: Amphetamine/Metha Screen,Urine Negative ng/ml (<1000); Barbiturates Screen,Urine Negative ng/ml (<200)
[2019-11-29 14:44] LABS: Benzodiazepines Screen,Urine Negative ng/ml (<200)
[2019-11-29 14:45] LABS: Troponin I < 0.01 ng/ml (0.00-0.034)
[2019-11-29 14:45] LABS: Cannabinoid Screen,Urine Negative ng/ml (<50); Cocaine Screen,Urine Negative ng/ml (<300)
[2019-11-29 14:46] LABS: Methadone Screen,Urine Negative ng/ml (<300); Opiate Screen,Urine Negative ng/ml (<300)
[2019-11-29 14:47] LABS: Phencyclidine Screen,Urine Negative ng/ml (<25)
[2019-11-29 14:49] LABS: Erythrocyte Sedimentation Rate 13 mm/hr (0-30)
--- NOTE | 2019-11-29 15:22 | PC.NURSE ---
speaking to CRISTINA majano
--- NOTE | 2019-11-29 15:57 | HMH.EDGENADL ---
ED Disposition Clinical Impression: Dehydration, Hypokalemia, Flu-like symptoms, UTI (urinary tract infection), Suspected SARS Disposition: Home, Self-Care Condition on Discharge: Good Instructions: DI for Shortness of Breath Additional Instructions: Please berry picker your prescriptions and take the potassium as directed please take the antibiotic for the UTI and also self quarantine for the 14 days. We should have test results on Monday. Prescriptions: Sulfamethoxazole/Trimethoprim [Bactrim DS tablet] 1 each PO BID 7 Days #14 tab Transmission Status: Pending to [facility] # Potassium Acetate [Potassium Acetate 40mEq/20mL vial] 20 meq PO DAILY 7 Days #7 vial Transmission Status: Pending to [facility] # Referrals: Provider,Referral, [Primary Care Provider] - - Critical Care Critical Care Time: No Attestation: On 11/29/19, the high probability of a clinically significant, sudden or life threatening deterioration of the following system(s) required my full and direct attention, intervention and personal management. The time I documented below is in addition to time spent performing reported procedures but includes the following listed in this critical care notation. Medical Decision Making - Medical Records Medical records reviewed: Yes: I reviewed the patient's medical records. - Niraj Inquiry Pt receiving controlled substance: No Vital Signs: 11/29/19 14:03 Temperature 98.3 F Temperature Source Oral Pulse Rate [Right] 73 Respiratory Rate 20 Blood Pressure [Right Arm] 141/87 H Blood Pressure Mean [Right Arm] 105 02 Sat by Pulse Oximetry 95 - Lab Data Lab results reviewed: Yes: I reviewed the patient's lab results. Lab Results 11/29/19 14:08: WBC 9.6, RBC 5.47 H, Hgb 15.3, Hct 46.3, MCV 84.7, MCH 28.0, MCHC 33.0, RDW 15.3, Plt Count 277, MPV 8.8, Neut % (Auto) 65.7, Lymph % (Auto) 26.8, [place] % (Auto) 4.8, Eos % (Auto) 1.8, Baso % (Auto) 0.9, Neut # (Auto) 6.3, Lymph # (Auto) 2.6, [place] # (Auto) 0.5, Eos # (Auto) 0.2, Baso # (Auto) 0.1, ESR 13 11/29/19 14:08: Sodium 138, Potassium 2.9 L*, Chloride 101, Carbon Dioxide 25, Anion Gap 14.9, BUN 9, Creatinine 1.00, Estimated Creat Clear 73, Estimated GFR 57 L, Est GFR ( Amer) 68, Glucose 100, Calcium 9.3, Total Bilirubin 0.4, AST 21, ALT 18, Alkaline Phosphatase 76, Troponin I < 0.01, C-Reactive Protein 2.5, Total Protein 7.2, Albumin 4.0, Globulin 3.2, Albumin/Globulin Ratio 1.3 11/29/19 14:08: Lactate 1.1 11/29/19 14:08: Influenza Type A Ag Negative, Influenza Type B Ag Negative 11/29/19 14:08: Group A Strep Rapid Negative 11/29/19 14:15: Specimen Source Right radial, O2 % 2lpm nc, ABG pH 7.45, ABG pCO2 41.1, ABG pO2 80.1, ABG HCO3 28.2 H, ABG Total CO2 29.4 H, ABG O2 Saturation 97, ABG Base Excess 4.3 H, William Test Acceptable 11/29/19 14:25: Urine Color Yellow, Urine Appearance Clear, Urine pH 7.0, Ur Specific [place] 1.010, Urine Protein Negative, Urine Glucose (UA) Negative, Urine Ketones Negative, Urine Blood Negative, Urine Nitrate Negative, Urine Bilirubin Negative, Urine Urobilinogen 0.2, Ur Leukocyte Esterase Negative, Urine RBC 3-5, Urine WBC 10-20, Ur Squamous Epith Cells 5-10, Urine Bacteria Trace, Urine Mucus Trace 11/29/19 14:25: Urine Opiates Screen Negative, Urine Methadone Screen Negative, Ur Barbituates Screen Negative, Ur Phencyclidine Scrn Negative, Ur Amphetamines Screen Negative, U Benzodiazepines Scrn Negative, Urine Cocaine Screen Negative, U Marijuana (THC) Screen Negative Result diagrams: 11/29/19 14:08 11/29/19 14:08 Orders (Tests/Meds): ORDERS Category Date Time Status SARS-CoV-2, BAR Stat Lab 11/29/19 15:26 Ordered Troponin I Q3H Lab 11/29/19 17:30 Ordered Troponin I Q3H Lab 11/29/19 20:30 Ordered Blood Culture Stat Micro 04/24/20 14:08 Received Strep Screen Confirmation Stat Micro 11/29/19 14:08 Received Urine Culture Stat Micro 11/29/19 14:25 Received ECG Request by /[address]
[2019-11-29 16:32] VITALS: BP 141/87; PULSE 73; RESP 20; TEMP 36.8; O2SAT 95
[2019-11-30 08:52] LABS: Covid-19 Nasal PCR Sendout Lex Not Detected
--- NOTE | 2019-11-30 10:20 | PC.NURSE ---
Notified Dr Remy of negative COVID result
== END 2019-11-29 16:35 | disposition home or self-care (01) ==
PROVIDERS: Emergency Provider Family Medicine
DX: N30.00 Acute cystitis without hematuria (principal); E86.0 Dehydration; E87.6 Hypokalemia; Z20.828 Contact with and (suspected) exposure to other viral communicable diseases; F17.210 Nicotine dependence, cigarettes, uncomplicated; F33.1 Major depressive disorder, recurrent, moderate; Z79.899 Other long term (current) drug therapy
CPT/HCPCS: 36415; 71045; 80053; 80305; 81001; 82803; 83605; 84484; 85025; 85651; 86140; 87040; 87086; 87088; 87186; 87275; 87276; 87430; 93005; 99284; U0003

== ENCOUNTER 2019-12-04 16:08 | Observation (INO) | payer OTHER, SELFPAY ==
[2019-12-04 16:24] VITALS: BP 125/77; PULSE 66; RESP 18; TEMP 36.6; O2SAT 97; BMI 29.6
[2019-12-04 17:27] LABS: Basophils # 0.1 K/mm3 (0-0.2); Basophils % 0.9 % (0.1-2.0); Eosinophils # 0.3 K/mm3 (0.0-0.4); Eosinophils % 3.7 % (0.1-12.0); Hematocrit 42.3 % (37.0-47.0); Lymphocytes # 2.6 K/mm3 (0.7-4.5); Lymphocytes % 34.6 % (10-50); Mean Corpuscular Hemoglobin 27.8 pg (27.0-31.2); Mean Corpuscular Volume 84.1 fl (81-99); Mean Platelet Volume 7.9 fl (7.4-10.4); Monocytes # 0.5 K/mm3 (0.1-1.0); Monocytes % 6.2 % (1.7-9.3); Neutrophils # 4.2 K/mm3 (1.8-7.8); Neutrophils % 54.6 % (37.0-80.0); Platelet Count 251 K/mm3 (142-424); Red Blood Count 5.03 M/mm3 (4.20-5.40); Red Cell Distribution Width 15.1 % (11.5-17.5); White Blood Count 7.6 K/mm3 (4.8-10.8)
[2019-12-04 17:33] LABS: Chloride 103 mmol/L (98-107); Sodium 138 mmol/L (136-145)
[2019-12-04 17:36] LABS: Alanine Aminotransferase 19 U/L (12-78); Albumin Level 3.6 g/dl (3.5-5.0); Albumin/Globulin Ratio 1.2 (1.1-1.8); Alkaline Phosphatase 72 U/L (38-126); Anion Gap 11.8 mEq/L (5-15); Aspartate Amino Transferase 23 U/L (14-36); Bilirubin,Total 0.3 mg/dl (0.2-1.3); Blood Urea Nitrogen 11 mg/dl (7-17); Calcium 8.9 mg/dl (8.4-10.2); Carbon Dioxide 26 mmol/L (22.0-30.0); Creatinine Clearance Estimated 65 mL/min (50-200); Estimated Glomerular Filt Rate 51 ml/min (>60); GFR (African American) 61 ML/MIN (>60); Glucose 98 mg/dl (74-100); Total Protein,Serum 6.6 g/dl (6.3-8.2)
[2019-12-04 17:37] LABS: Lactic Acid 1.8 mmol/L (0.7-2.1)
[2019-12-04 17:42] LABS: Potassium 2.8 mmoL/L (3.5-5.1)
[2019-12-04 19:54] VITALS: BP 96/60; PULSE 63; RESP 18; O2SAT 93
[2019-12-04 20:00] VITALS: TEMP 37.2
[2019-12-05 04:00] VITALS: BP 96/58; PULSE 55; RESP 18; TEMP 36.8; O2SAT 95
--- NOTE | 2019-12-05 04:57 | PC.NURSE ---
A&OX4. PT AMBULATES INDEPENDENTLY IN ROOM. PT HAS TOLERATED MANY SNACKS THIS EVENING. PT HAS SHOWN NO S/S OF ALTERED MENTAL STATUS. PT HAS HAD GREAT URINE OUTPUT. PT HAS HAD NO C/O PAIN THIS SHIFT. PT RESTING COMFORTABLY IN BED T/O SHIFT. VSS WILL CONTINUE TO MONITOR.
[2019-12-05 05:04] VITALS: BMI 30.4
--- NOTE | 2019-12-05 05:05 | PC.NURSE ---
RN NOTIFIED OF WEIGHT GAIN.
--- NOTE | 2019-12-05 05:11 | PC.NURSE ---
BRANDY NOTIFIED OF WEIGHT GAIN
[2019-12-05 06:09] LABS: Basophils # 0.1 K/mm3 (0-0.2); Basophils % 0.7 % (0.1-2.0); Eosinophils # 0.3 K/mm3 (0.0-0.4); Eosinophils % 3.8 % (0.1-12.0); Hematocrit 41.4 % (37.0-47.0); Hemoglobin 13.6 g/dL (12.2-16.2); Lymphocytes # 2.7 K/mm3 (0.7-4.5); Lymphocytes % 39.2 % (10-50); Mean Corpuscular HGB Conc 32.9 g/dL (31.8-35.4); Mean Corpuscular Hemoglobin 27.9 pg (27.0-31.2); Mean Corpuscular Volume 84.9 fl (81-99); Mean Platelet Volume 8.3 fl (7.4-10.4); Monocytes # 0.4 K/mm3 (0.1-1.0); Monocytes % 5.4 % (1.7-9.3); Neutrophils # 3.6 K/mm3 (1.8-7.8); Neutrophils % 50.9 % (37.0-80.0); Platelet Count 252 K/mm3 (142-424); Red Blood Count 4.88 M/mm3 (4.20-5.40)
[2019-12-05 06:11] LABS: Chloride 105 mmol/L (98-107); Sodium 140 mmol/L (136-145)
[2019-12-05 06:14] LABS: Blood Urea Nitrogen 10 mg/dl (7-17); Creatinine Clearance Estimated 82 mL/min (50-200); Estimated Glomerular Filt Rate 64 ml/min (>60); GFR (African American) 77 ML/MIN (>60)
[2019-12-05 06:15] LABS: Anion Gap 7.9 mEq/L (5-15); Calcium 8.3 mg/dl (8.4-10.2); Carbon Dioxide 30 mmol/L (22.0-30.0); Glucose 86 mg/dl (74-100)
[2019-12-05 06:28] LABS: Potassium 2.9 mmoL/L (3.5-5.1)
--- NOTE | 2019-12-05 07:27 | HMH.PHAVTE ---
[facility] Pharmacy VTE Monitoring - Patient Demographics Admission date: 12/04/19 Report Date: 12/05/19 Time: 07:27 Allergies/Adverse Reactions: Patient Allergies penicillin G Allergy (Mild, Verified 12/04/19 17:05) Rash Height: 1.6 m Weight: 78.018 kg - VTE Risk Labs: VTE Related Lab Results Hgb 13.6 g/dL (12.2-16.2) 12/05/19 05:40 Hct 41.4 % (37.0-47.0) 12/05/19 05:40 Plt Count 252 K/mm3 (142-424) 12/05/19 05:40 BUN 10 mg/dl (7-17) 12/05/19 05:40 Creatinine 0.90 mg/dl (0.52-1.04) 12/05/19 05:40 Estimated Creat Clear 82 mL/min (50-200) 12/05/19 05:40 Was VTE Risk Assessment Performed: Yes VTE Score: 3 VTE Risk Level: Low Risk - Prophylaxis VTE Prophylaxis Ordered?: Yes Types of VTE Prophylaxis: TEDS Knee High Location of Applied Device: Bilateral Lower Extremeties - VTE Diagnosis Confirmed Treatment or plan recommended: Continue Current Treatment
[2019-12-05 07:54] VITALS: BP 119/65; PULSE 56; RESP 18; TEMP 36.7; O2SAT 95
--- NOTE | 2019-12-05 10:01 | HMH.PHAINT ---
MEDICATION RECONCILIATION COMPLETED ON PATIENT USING EXTERNAL FILL HISTORY FROM PHARMACY. -KWAKU GIBSON, AMANDAD
--- NOTE | 2019-12-05 13:21 | HMH.HPDC ---
General - General Admission date:: 12/04/19 Discharge date: 12/05/19 *Admission Date: 12/04/19 *Chief complaint: uti *History of present illness: 59 yr old female admitted for ESBL UTI. pt was seen at pcp on monday and sent to ed for eval. Was dc from ed on oral antibiotics for uti. urine culture shows ESBL. Pt called her psychologist and her family was wanting her admitted due to ams. Her psychologist called the office and stated pt is calling her office and she is talking confused, [employer] states she does not believe it is her meds she is on. This is whenit was discovered she had a positive urine culture for ESBL. Pt was called and she still was having ams and was informed to come to [facility] for admit. Pt admitted and placed on IV fluids and antibiotics. [facility] History I have reviewed the patient's past medical history: Yes Medical History: Reports:: Depression Denies:: Cancer, Diabetes Mellitus Type 1, Diabetes Mellitus Type 2, MRSA *Have you ever received a pneumonia vaccine?: No *Have you received a flu vaccine this season?: No Other Medical History: Reports: Other Laterality Cases: Right: Lumpectomy, Bilateral: Tonsillectomy Other Surgeries: Yes: Bariatric Surgery Amputation: No Fractures: No - *Social History Educational Level: Attended College Smoking Status: Current every day smoker Tobacco Type: cigarettes # Packs/Day (cigarettes): 1 Alcohol Intake: never Substance Use Type: denies use *Occupational Status:: employed Housing: apartment Household Members: none *Travel in the last 8 weeks: None - Psychiatric History Pschychiatric History:: Reports:: Depression Family Hx:: Diabetes, Coronary Artery Disease Review of Systems - Review of Systems Review of systems:: pertinent systems reviewed and negative unless documented below - Constitutional Denies fever(s) - Eyes Denies change in vision - ENT Denies bleeding gums - *Cardiovascular Denies chest pain at rest, Denies fast heart rate - *Respiratory Denies chest congestion, Denies coughing up blood - *Gastrointestinal Denies bloating, Denies nausea, Denies pain with swallowing - *Genitourinary Reports urinary incontinence, Reports urinary urgency - *Musculoskeletal Denies joint pain - Integumentary/Breasts Denies bleeding lesions, Denies rash - *Neurologic Denies abnormal hearing - Psychiatric Reports behavioral changes, Reports confusion, Denies lack of enjoyment - Endocrine Denies excessive sweating - Hematologic/Lymphatic Denies easy bruising Exam Vital signs and Labs for Last 24 Hours: Temp Pulse Resp BP Pulse Ox 98.0 F 56 L 18 119/65 95 12/05/19 07:54 12/05/19 07:54 12/05/19 07:54 12/05/19 07:54 12/05/19 07:54 Laboratory Results - last 24 hr 12/04/19 17:10: WBC 7.6, RBC 5.03, Hgb 14.0, Hct 42.3, MCV 84.1, MCH 27.8, MCHC 33.0, RDW 15.1, Plt Count 251, MPV 7.9, Neut % (Auto) 54.6, Lymph % (Auto) 34.6, [place] % (Auto) 6.2, Eos % (Auto) 3.7, Baso % (Auto) 0.9, Neut # (Auto) 4.2, Lymph # (Auto) 2.6, [place] # (Auto) 0.5, Eos # (Auto) 0.3, Baso # (Auto) 0.1 12/04/19 17:10: Sodium 138, Potassium 2.8 L*, Chloride 103, Carbon Dioxide 26, Anion Gap 11.8, BUN 11, Creatinine 1.10 H, Estimated Creat Clear 65, Estimated GFR 51 L, Est GFR ( Amer) 61, Glucose 98, Calcium 8.9, Total Bilirubin 0.3, AST 23, ALT 19, Alkaline Phosphatase 72, Total Protein 6.6, Albumin 3.6, Globulin 3.0, Albumin/Globulin Ratio 1.2 12/04/19 17:10: Lactate 1.8 12/05/19 05:40: WBC 7.0, RBC 4.88, Hgb 13.6, Hct 41.4, MCV 84.9, MCH 27.9, MCHC 32.9, RDW 15.0, Plt Count 252, MPV 8.3, Neut % (Auto) 50.9, Lymph % (Auto) 39.2, [place] % (Auto) 5.4, Eos % (Auto) 3.8, Baso % (Auto) 0.7, Neut # (Auto) 3.6, Lymph # (Auto) 2.7, [place] # (Auto) 0.4, Eos # (Auto) 0.3, Baso # (Auto) 0.1 12/05/19 05:40: Sodium 140, Potassium 2.9 L*, Chloride 105, Carbon Dioxide 30, Anion Gap 7.9, BUN 10, Creatinine 0.90, Estimated Creat Clear 82, Estimated GFR 64, Est GFR ( Amer) 77 D, Glucose
--- NOTE | 2019-12-05 15:28 | HMH.PHAINT ---
DISCHARGE COUNSELING COMPLETE. SPOKE WITH PATIENT ABOUT STOPPING THE BACTRIM AND RECEIVING INVANZ VIA INFUSION FOR 8 DAYS. PATIENT ENDORSED NO QUESTIONS AT THIS TIME.
--- NOTE | 2019-12-05 15:38 | PC.NURSE ---
THIS RN PROVIDED D/C INSTRUCTIONS ON HOW TO PREVENT UTI AND E.COLI. THIS RN ENCOURAGED PATIENT TO WASH HANDS. THIS RN WHILE ON THE PHONE WITH YANICK CORONADO IN INFUSION INFORMED PATIENT TO ARRIVE TO INFUSION ROOM AT 1400 . PATIENT VERBALIZED AN UNDERSTANDING. PATIENT REQUESTED MEDICATION FOR COLD SORES IN MOUTH. THIS RN PHONED DR. NAVA'S OFFICE, SPOKE WITH SHIRA. PER SHIRA MARTINEZ WILL CALL IN A PRESCRIPTION. PATIENT INQUIRED ABOUT WORK DAYS. THIS RN SPOKE WITH SHIRA AND MEKHI MARTINEZ PATIENT IS NOT TO RETURN TO WORK UNTIL ANTIBIOTIC TREATMENT IS COMPLETE. THIS RN INFORMED PATIENT, PATIENT VERBALIZED AN UNDERSTANDING. IV IS REMAINING, THIS RN PROVIDED NETTING OVER IV AND INFORMED PATIENT NOT TO SHOWER UNTIL INSTRUCTIONS FROM INFUSION IS PROVIDED. PATIENT VERBALIZED AN UNDERSTANDING. NO OTHER NEEDS OR CONCERNS AT THIS TIME.
== END 2019-12-05 15:30 | disposition home or self-care (01) ==
PROVIDERS: Nurse Practitioner Family; Admitting Provider Emergency Medicine; PCP Emergency Medicine; Visit Provider Emergency Medicine
DX: N39.0 Urinary tract infection, site not specified (principal); B96.29 Other Escherichia coli [E. coli] as the cause of diseases classified elsewhere; Z16.12 Extended spectrum beta lactamase (ESBL) resistance; Z72.0 Tobacco use; Z79.899 Other long term (current) drug therapy; Z88.0 Allergy status to penicillin
CPT/HCPCS: 36415; 80048; 80053; 83605; 85025; 87040; G0378; J1335

== ENCOUNTER 2019-12-06 13:40 | Outpatient (CLI) | payer OTHER, SELFPAY ==
[2019-12-06 14:10] VITALS: BP 116/70; PULSE 64; RESP 18; TEMP 36.7; O2SAT 98
[2019-12-06 14:45] VITALS: BP 103/64; PULSE 55; RESP 18
== END 2019-12-06 15:05 | disposition home or self-care (01) ==
LOC: INF 13:48
PROVIDERS: Visit Provider Emergency Medicine
DX: N39.0 Urinary tract infection, site not specified (principal); Z16.12 Extended spectrum beta lactamase (ESBL) resistance
CPT/HCPCS: 96365; J1335

== ENCOUNTER → 2019-12-07 12:52 | Outpatient (CLI) | payer OTHER, SELFPAY ==
[2019-12-07 13:53] VITALS: BP 123/69; PULSE 84; RESP 16; TEMP 36.7; O2SAT 94
[2019-12-07 14:00] VITALS: BP 110/63; PULSE 78; RESP 16; TEMP 36.8; O2SAT 94
== END ==
PROVIDERS: PCP Emergency Medicine; Visit Provider Emergency Medicine
DX: N39.0 Urinary tract infection, site not specified (principal); Z16.12 Extended spectrum beta lactamase (ESBL) resistance
CPT/HCPCS: 96365; J1335

== ENCOUNTER → 2019-12-08 12:51 | Outpatient (CLI) | payer OTHER, SELFPAY ==
[2019-12-08 13:02] VITALS: BP 112/65; PULSE 80; RESP 16; TEMP 36.9; O2SAT 96
[2019-12-08 14:04] VITALS: BP 118/65; PULSE 78; RESP 18; TEMP 37; O2SAT 95
== END ==
PROVIDERS: PCP Emergency Medicine; Visit Provider Emergency Medicine
DX: N39.0 Urinary tract infection, site not specified (principal); Z16.12 Extended spectrum beta lactamase (ESBL) resistance
CPT/HCPCS: 96365; J1335

== ENCOUNTER 2019-12-09 14:30 | Outpatient (CLI) | payer OTHER, SELFPAY ==
[2019-12-09 14:41] VITALS: BMI 29.2
[2019-12-09 15:09] LABS: Chloride 102 mmol/L (98-107); Sodium 136 mmol/L (136-145)
[2019-12-09 15:12] LABS: Anion Gap 8.9 mEq/L (5-15); Blood Urea Nitrogen 7 mg/dl (7-17); Calcium 9.4 mg/dl (8.4-10.2); Carbon Dioxide 28 mmol/L (22.0-30.0); Creatinine Clearance Estimated 64 mL/min (50-200); Estimated Glomerular Filt Rate 51 ml/min (>60); GFR (African American) 61 ML/MIN (>60); Glucose 121 mg/dl (74-100)
[2019-12-09 15:24] LABS: Potassium 2.9 mmoL/L (3.5-5.1)
[2019-12-09 15:39] VITALS: BP 120/67; PULSE 87; RESP 18; TEMP 36.8; O2SAT 97
[2019-12-09 16:09] VITALS: BP 111/61; PULSE 79; RESP 18; O2SAT 98
[2019-12-09 16:25] VITALS: BP 109/60; PULSE 74; RESP 18; O2SAT 98
== END 2019-12-09 16:25 | disposition home or self-care (01) ==
LOC: INF 14:30
PROVIDERS: Visit Provider Emergency Medicine
DX: N39.0 Urinary tract infection, site not specified (principal); Z16.12 Extended spectrum beta lactamase (ESBL) resistance
CPT/HCPCS: 80048; 96365; J1335

== ENCOUNTER 2019-12-10 13:25 | Outpatient (CLI) | payer OTHER, SELFPAY ==
[2019-12-10 13:35] VITALS: BP 106/62; PULSE 75; RESP 18; TEMP 36.4; O2SAT 97
[2019-12-10 14:25] VITALS: BP 95/54; PULSE 75; RESP 18
== END 2019-12-10 14:25 | disposition home or self-care (01) ==
LOC: INF 13:25
PROVIDERS: Visit Provider Emergency Medicine
DX: N39.0 Urinary tract infection, site not specified (principal); Z16.12 Extended spectrum beta lactamase (ESBL) resistance
CPT/HCPCS: 96365; J1335

== ENCOUNTER 2019-12-11 14:30 | Outpatient (CLI) | payer OTHER, SELFPAY ==
[2019-12-11 14:45] VITALS: BP 114/68; PULSE 84; RESP 18; TEMP 36.4; O2SAT 97
[2019-12-11 15:15] VITALS: BP 109/66; PULSE 81; RESP 18; O2SAT 97
[2019-12-11 15:36] VITALS: BP 93/60; PULSE 80; RESP 18; O2SAT 96
== END 2019-12-11 15:38 | disposition home or self-care (01) ==
LOC: INF 14:39
PROVIDERS: Visit Provider Emergency Medicine
DX: N39.0 Urinary tract infection, site not specified (principal); Z16.12 Extended spectrum beta lactamase (ESBL) resistance
CPT/HCPCS: 96365; J1335

== ENCOUNTER 2019-12-12 13:21 | Outpatient (CLI) | payer OTHER, SELFPAY ==
[2019-12-12 13:30] VITALS: BP 99/65; PULSE 81; RESP 18; TEMP 36.7; O2SAT 98
[2019-12-12 14:10] VITALS: BP 97/60; PULSE 66; RESP 18; O2SAT 98
== END 2019-12-12 14:10 | disposition home or self-care (01) ==
LOC: INF 13:21
PROVIDERS: Visit Provider Emergency Medicine
DX: N39.0 Urinary tract infection, site not specified (principal); Z16.12 Extended spectrum beta lactamase (ESBL) resistance
CPT/HCPCS: 96365; J1335

== ENCOUNTER 2019-12-13 13:10 | Outpatient (CLI) | payer OTHER, SELFPAY ==
[2019-12-13 13:26] VITALS: BP 91/58; PULSE 67; RESP 18; TEMP 36.5; O2SAT 100
[2019-12-13 14:15] VITALS: BP 97/56; PULSE 62; RESP 18; O2SAT 100
== END 2019-12-13 14:15 | disposition home or self-care (01) ==
LOC: INF 13:12
PROVIDERS: PCP Emergency Medicine; Visit Provider Emergency Medicine
DX: N39.0 Urinary tract infection, site not specified (principal); Z16.12 Extended spectrum beta lactamase (ESBL) resistance
CPT/HCPCS: 96365; J1335

== ENCOUNTER → 2020-02-21 11:42 | Outpatient (CLI) | payer OTHER, SELFPAY ==
[2020-02-22 12:57] LABS: Covid-19 Nasal PCR Sendout Lex Not Detected
== END ==
PROVIDERS: PCP Emergency Medicine; Visit Provider Emergency Medicine
DX: Z03.818 Encounter for observation for suspected exposure to other biological agents ruled out (principal)
CPT/HCPCS: U0004

== ENCOUNTER 2020-04-13 15:40 | Emergency (ER) | payer OTHER, SELFPAY ==
[2020-04-13 15:55] VITALS: BMI 30.9
[2020-04-13 15:56] VITALS: BP 111/75; PULSE 79; RESP 20; TEMP 36.9; O2SAT 97; BMI 30.9
--- NOTE | 2020-04-13 15:56 | XR_ITS ---
PROCEDURE: XR KNEE LT 3V CLINICAL INDICATION: PAIN/SWELLING COMPARISON: [id number] XR knee LT 4V from 05/23/2018 FINDINGS: There are tricompartmental osteoarthritic changes. There are at least 3 small loose intra-articular bodies 1 anteriorly in the knee joint at 2 mm and 2 posteriorly at 3 and 5 mm. No acute fracture or dislocation. There may be a small knee joint effusion. Other findings:None. IMPRESSION: Osteoarthritis with loose bodies and possible small knee joint effusion. No acute fracture Dictated by: William Wells MD 04/14/2020 04:40 William Wells MD in OV 04/14/2020 04:40
--- NOTE | 2020-04-13 16:18 | HMH.EDUTC ---
[facility] [place] Disposition Clinical Impression: Right knee pain Qualifiers: Chronicity: acute Qualified Code(s): M25.561 - Pain in right knee Disposition: Home, Self-Care Condition on Discharge: Good Instructions: Gout, DI for Gout Additional Instructions: Rest the extremity, Elevate the extremity as tolerated while you are resting. Start the oral steroids tomorrow. Follow up with Dr. Masters if you're not getting better. I put in a referral but you need to call her office and schedule an appointment. Follow up with your regular doctor. GO TO THE ER FOR ANY WORSENING SYMPTOMS Prescriptions: methylPREDNISolone [Medrol] 4 mg PO DIRECTED 6 Days #21 tab.ds.pk Transmission Status: Received by [facility] #[id number] Referrals: Benjamín Arguello MD [Primary Care Provider] - Forms: Work/School Release Time of Disposition: 16:46 Medical Decision Making - Medical Records Medical records reviewed: No: I reviewed the patient's medical records. - Niraj Inquiry Pt receiving controlled substance: No Vital Signs: 04/13/20 15:56 04/13/20 16:48 Temperature 98.5 F 98.5 F Temperature Source Oral Pulse Rate 79 Pulse Rate [Left Brachial] 79 Respiratory Rate 20 20 Blood Pressure 111/75 Blood Pressure [Left Arm] 111/75 Blood Pressure Mean [Left Arm] 87 Blood Pressure Source [Left Arm] Automatic Cuff Blood Pressure Position [Left Arm] Sitting 02 Sat by Pulse Oximetry 97 Oxygen Delivery Method Room Air Orders (Tests/Meds): ED MEDICATIONS Discontinued Medications Generic Name Dose Route Start Last Admin Trade Name Khadar PRN Reason Stop Dose Admin Methylprednisolone Sodium Succinate 125 mg 04/13/20 16:17 04/13/20 16:24 Solu-Medrol 125mg/2ml Vial IM 04/13/20 16:18 125 mg ONCE ONE Administration [facility] [place] HPI - General Stated complaint: can't move L leg Time Seen by Provider: 04/13/20 16:00 Mode of Arrival: Ambulatory Source of Information: Patient Limitations: No Limitations Description of Symptoms (Recalled from Triage Doc. by RN): PATIENT C/O LEFT KNEE PAIN AND SWELLING WITH DIFFICULTY BENDING IT THAT STARTED LAST NIGHT. PATIENT STATES SHE SLIPPED AND FELL AT WORK TWICE YESTERDAY HEENT Symptoms (Recalled from RN notes): No Resp Symptoms (Recalled from RN notes): No Skin Symptoms (Recalled from RN notes): No MS Symptoms (Recalled from RN notes): Yes Functional Status (Recalled from RN notes): WNL - History of Present Illness Provider Complaint: She states that she his having right knee pain. Her pain began 2 days ago. She has a history of gout and she thinks that this is a gout flare up. She did slip on a wet floor a day or so before her symptoms began. But she states that she did not fall or jerk the knee that she could tell. - Related Data Home Medications Medication Instructions Recorded Confirmed ARIPiprazole [Aripiprazole 15mg 7.5 mg PO DAILY 12/05/19 04/13/20 Tablet] trazodone 100 mg tablet 100 mg PO QHS PRN 02/21/20 04/13/20 Previous Rx's Medication Instructions Recorded methylPREDNISolone [Medrol] 4 mg PO DIRECTED 6 Days #21 04/13/20 tab.ds.pk Allergies Allergy/AdvReac Type Severity Reaction Status Date / Time penicillin G Allergy Mild Rash Verified 02/21/20 11:14 - Worker's Comp Is this a Worker's Comp case?: No [facility] History - Hepatitis A Screen Drug use history?: No High risk sexual behaviors?: No History of sexually transmitted infection?: No Currently employed?: No Childcare worker?: No Do you have indoor plumbing?: Yes Do you have electricity?: Yes Attestation statement:: This patient has been screened for Hepatitis A risk factors. I have reviewed the patient's past medical history: Yes Medical History: Reports:: Chronic Obstructive Pulmonary Disease (COPD), Depression Denies:: Cancer, Diabetes Mellitus Type 1, Diabetes Mellitus Type 2, MRSA Other Medical History: Reports: Arthritis (gout), Sinus Problems, Other
[2020-04-13 16:48] VITALS: BP 111/75; PULSE 79; RESP 20; TEMP 36.9; O2SAT 97
== END 2020-04-13 17:00 | disposition home or self-care (01) ==
PROVIDERS: Emergency Provider Nurse Practitioner Family; PCP Emergency Medicine
DX: M25.561 Pain in right knee (principal); J44.9 Chronic obstructive pulmonary disease, unspecified; E87.6 Hypokalemia; F33.1 Major depressive disorder, recurrent, moderate; E55.9 Vitamin D deficiency, unspecified; F17.210 Nicotine dependence, cigarettes, uncomplicated
CPT/HCPCS: 73562; 96372; 99202

== ENCOUNTER → 2020-07-06 10:13 | Outpatient (CLI) | payer OTHER, SELFPAY ==
[2020-07-06 10:39] LABS: Basophils # 0.1 K/mm3 (0-0.2); Basophils % 0.7 % (0.1-2.0); Eosinophils # 0.3 K/mm3 (0.0-0.4); Eosinophils % 3.4 % (0.1-12.0); Hematocrit 48.5 % (37.0-47.0); Hemoglobin 16.1 g/dL (12.2-16.2); Mean Corpuscular HGB Conc 33.2 g/dL (31.8-35.4); Mean Corpuscular Hemoglobin 27.4 pg (27.0-31.2); Mean Corpuscular Volume 82.4 fl (81-99); Mean Platelet Volume 8.8 fl (7.4-10.4); Monocytes # 0.5 K/mm3 (0.1-1.0); Monocytes % 5.4 % (1.7-9.3); Neutrophils # 5.5 K/mm3 (1.8-7.8); Neutrophils % 66.5 % (37.0-80.0); Platelet Count 256 K/mm3 (142-424); Red Blood Count 5.89 M/mm3 (4.20-5.40); Red Cell Distribution Width 15.8 % (11.5-17.5); White Blood Count 8.3 K/mm3 (4.8-10.8)
[2020-07-06 11:17] LABS: Chloride 103 mmol/L (98-107)
[2020-07-06 11:18] LABS: Sodium 140 mmol/L (136-145)
[2020-07-06 11:20] LABS: Alanine Aminotransferase 12 U/L (12-78); Alkaline Phosphatase 80 U/L (38-126); Aspartate Amino Transferase 19 U/L (14-36); Bilirubin,Total 0.4 mg/dl (0.2-1.3); Blood Urea Nitrogen 13 mg/dl (7-17); Estimated Glomerular Filt Rate 42 ml/min (>60); GFR (African American) 50 ML/MIN (>60)
[2020-07-06 11:21] LABS: Albumin Level 3.9 g/dl (3.5-5.0); Albumin/Globulin Ratio 1.3 (1.1-1.8); Anion Gap 9.9 mEq/L (5-15); Calcium 9.7 mg/dl (8.4-10.2); Carbon Dioxide 30 mmol/L (22.0-30.0); Globulin 3.1 g/dL (1.3-3.2); Glucose 100 mg/dl (74-100)
[2020-07-06 11:26] LABS: C-Reactive Protein 12.9 mg/L (0-4)
[2020-07-06 11:29] LABS: Erythrocyte Sedimentation Rate 5 mm/hr (0-30)
[2020-07-06 11:31] LABS: Potassium 2.9 mmoL/L (3.5-5.1)
== END ==
PROVIDERS: Visit Provider Podiatrist
DX: M10.9 Gout, unspecified (principal)
CPT/HCPCS: 36415; 80053; 84550; 85025; 85651; 86140

== ENCOUNTER → 2021-03-29 16:11 | Outpatient (CLI) | payer OTHER, SELFPAY ==
[2021-03-29 16:26] LABS: Basophils # 0.1 K/mm3 (0-0.2); Basophils % 0.8 % (0.1-2.0); Eosinophils # 0.3 K/mm3 (0.0-0.4); Eosinophils % 2.5 % (0.1-12.0); Hematocrit 44.6 % (37.0-47.0); Hemoglobin 14.5 g/dL (12.2-16.2); Lymphocytes # 2.4 K/mm3 (0.7-4.5); Lymphocytes % 21.5 % (10-50); Mean Corpuscular HGB Conc 32.6 g/dL (31.8-35.4); Mean Platelet Volume 8.4 fl (7.4-10.4); Monocytes # 0.6 K/mm3 (0.1-1.0); Monocytes % 5.6 % (1.7-9.3); Neutrophils # 7.8 K/mm3 (1.8-7.8); Neutrophils % 69.5 % (37.0-80.0); Platelet Count 302 K/mm3 (142-424); Red Blood Count 5.38 M/mm3 (4.20-5.40); Red Cell Distribution Width 15.1 % (11.5-17.5); White Blood Count 11.2 K/mm3 (4.8-10.8)
[2021-03-29 17:10] LABS: Alanine Aminotransferase 16 U/L (12-78); Albumin Level 4.2 g/dl (3.5-5.0); Albumin/Globulin Ratio 1.4 (1.1-1.8); Alkaline Phosphatase 90 U/L (38-126); Anion Gap 14.1 mEq/L (5-15); Aspartate Amino Transferase 21 U/L (14-36); Bilirubin,Total 0.5 mg/dl (0.2-1.3); Blood Urea Nitrogen 11 mg/dl (7-17); Calcium 9.6 mg/dl (8.4-10.2); Carbon Dioxide 24 mmol/L (22.0-30.0); Chloride 103 mmol/L (98-107); Estimated Glomerular Filt Rate 46 ml/min (>60); GFR (African American) 55 ML/MIN (>60); Globulin 3.1 g/dL (1.3-3.2); Glucose 108 mg/dl (74-100); Potassium 3.1 mmoL/L (3.5-5.1); Sodium 138 mmol/L (136-145); Total Protein,Serum 7.3 g/dl (6.3-8.2)
[2021-03-29 17:17] LABS: Valproic Acid, (Depakene) < 10.0 ug/ml (50-100)
[2021-03-29 17:28] LABS: 25-OH Vitamin D, Total 18.2 ng/mL (30-100)
== END ==
PROVIDERS: Visit Provider Nurse Practitioner Psychiatric/Mental Health
DX: F31.60 Bipolar disorder, current episode mixed, unspecified (principal)
CPT/HCPCS: 36415; 80053; 80164; 82306; 85025

== ENCOUNTER 2021-06-17 11:23 | Emergency (ER) | payer OTHER, SELFPAY ==
[2021-06-17 13:11] VITALS: BP 120/71; PULSE 74; RESP 16; TEMP 36.8; O2SAT 96; BMI 30.9
--- NOTE | 2021-06-17 13:23 | HMH.EDUTC ---
[facility] [place] Impression: Viral syndrome Sinusitis Qualifiers: Sinusitis location: unspecified location Chronicity: acute Recurrence: non-recurrent Qualified Code(s): J01.90 - Acute sinusitis, unspecified Disposition: Home, Self-Care Condition on Discharge: Good Instructions: How to Instill Eye Drops, Conjunctivitis, DI for Sinusitis, DI for Viral Syndrome Additional Instructions: Drink plenty of fluids. Take tylenol or ibuprofen for pain or fever. Take the medications as directed. Follow up with your regular doctor. GO TO THE ER FOR ANY WORSENING SYMPTOMS Quarantine until you know the results of your covid-19 test. If it is positive, the health department should call you and give you further instructions about your length of Quarantine and other things. Notify your school or workplace of your results and follow their instructions regarding return to work/school. Use the eye drops as directed. Follow up with your regular doctor of any issues. GO TO THE ER FOR ANY WORSENING SYMPTOMS OR CONCERNS, ESPECIALLY ANY EYE PAIN OR VISION CHANGES. Prescriptions: predniSONE [Deltasone 10mg tablet] 10 mg PO BID 3 Days #6 tab Transmission Status: Received by [facility] Moxifloxacin HCl [Vigamox] 1 drp EYE-LEFT TID 7 Days #3 ml Transmission Status: Received by [facility] Azithromycin [Z-Juan C 250mg Tab*] 250 mg PO UD DOSE PK #6 tab Transmission Status: Received by [facility] Referrals: Benjamín Arguello MD [Primary Care Provider] - Time of Disposition: 13:47 Medical Decision Making - Medical Records Medical records reviewed: No: I reviewed the patient's medical records. - Niraj Inquiry Pt receiving controlled substance: No Vital Signs: 06/17/21 13:11 06/17/21 14:14 Temperature 98.3 F 98.3 F Temperature Source Oral Pulse Rate 74 Pulse Rate [Left] 74 Respiratory Rate 16 16 Blood Pressure 120/71 Blood Pressure [Right Arm] 120/71 Blood Pressure Mean [Right Arm] 87 02 Sat by Pulse Oximetry 96 - Lab Data Lab results reviewed: Yes: I reviewed the patient's lab results. Lab Results 06/17/21 13:37: Chlamy pneumoniae PCR Not detected, Adenovirus (PCR) Not detected, B. pertussis DNA (PCR) Not detected, Coronavirus OC43 (PCR) Not detected, Coronavirus HKU1 (PCR) Not detected, Coronavirus 229E (PCR) Not detected, SARS-CoV-2 (PCR) Not detected, Coronavirus NL63 (PCR) Not detected, Human Metapneumovir PCR Not detected, Influenza A (H1) PCR Not detected, Influ A (H1N1/09) PCR Not detected, Influenza A (H3) PCR Not detected, Influenza Type A (PCR) Not detected, Influenza Type B (PCR) Not detected, M. pneumoniae (PCR) Not detected, Parainfluenza 1 (PCR) Not detected, Parainfluenza 2 (PCR) Not detected, Parainfluenza 3 (PCR) Not detected, Parainfluenza 4 (PCR) Not detected, RSV (PCR) Not detected, Entero/Rhino (PCR) Not detected [facility] [place] - General Stated complaint: no taste/smell, muscle pain, congestion, h/a Time Seen by Provider: 06/17/21 13:23 Mode of Arrival: Ambulatory Limitations: No Limitations Description of Symptoms (Recalled from Triage Doc. by RN): PT C/O COLD IN EYES, NUMBNESS IN BOTH HANDS AND R FOOT, KNOTS IN HAND AND UNDER BOTH ARMS. PT STATES THIS HAS BEEN ONGOING X2 WEEKS. HEENT Symptoms (Recalled from RN notes): No Resp Symptoms (Recalled from RN notes): No Skin Symptoms (Recalled from RN notes): No MS Symptoms (Recalled from RN notes): No Functional Status (Recalled from RN notes): SEE ABOVE - History of Present Illness Provider Complaint: She c/o feeling bad for the past 3 days approx. She has had chills, body aches and she has felt bad. She denies chest congestion or a cough. She is having some sinus congestion and her left eye has been matted together when she woke up this morning. She denies any eye pain or injury. - Related Data Home Medications Medication Instructions Recorded
[2021-06-17 14:11] LABS: Adenovirus,PCR Not Detected (NotDetected); Bordetella Pertussis Not Detected (NotDetected); Chlamydophila Pneumoniae, PCR Not Detected (NotDetected); Coronavirus 19, PCR Not Detected (NotDetected); Coronavirus 229E Not Detected (NotDetected); Coronavirus NL63 Not Detected (NotDetected); Coronavirus OC43 Not Detected (NotDetected); Coronovirus HKU1,PCR Not Detected (NotDetected); Human Metapneumovirus Not Detected (NotDetected); Influenza A, PCR Not Detected (NotDetected); Influenza AH1, 2009 Not Detected (NotDetected); Influenza AH1, PCR Not Detected (NotDetected); Influenza AH3,PCR Not Detected (NotDetected); Influenza B, PCR Not Detected (NotDetected); Mycoplasma Pneumoniae, PCR Not Detected (NotDetected); Parainfluenza 1, PCR Not Detected (NotDetected); Parainfluenza 2, PCR Not Detected (NotDetected); Parainfluenza 3, PCR Not Detected (NotDetected); Parainfluenza 4, PCR Not Detected (NotDetected); Respiratory Syncytial Virus Not Detected (NotDetected); Rhinovirus/Enterovirus Not Detected (NotDetected)
[2021-06-17 14:14] VITALS: BP 120/71; PULSE 74; RESP 16; TEMP 36.8
== END 2021-06-17 14:22 | disposition home or self-care (01) ==
PROVIDERS: Emergency Provider Nurse Practitioner Family; PCP Emergency Medicine
DX: J01.90 Acute sinusitis, unspecified (principal); B34.9 Viral infection, unspecified; F33.1 Major depressive disorder, recurrent, moderate; J44.9 Chronic obstructive pulmonary disease, unspecified; F17.210 Nicotine dependence, cigarettes, uncomplicated
CPT/HCPCS: 87581; 87632; 87798; 99202; C9803; G0463; U0003; U0005

== ENCOUNTER 2021-07-03 21:08 | Emergency (ER) | payer OTHER, SELFPAY ==
[2021-07-03 21:09] VITALS: BP 140/80; PULSE 73; RESP 20; TEMP 36.4; O2SAT 96; BMI 30.9
[2021-07-03 21:45] LABS: Basophils # 0.1 K/mm3 (0-0.2); Basophils % 0.8 % (0.1-2.0); Eosinophils # 0.4 K/mm3 (0.0-0.4); Eosinophils % 3.8 % (0.1-12.0); Hematocrit 41.2 % (37.0-47.0); Hemoglobin 13.4 g/dL (12.2-16.2); Lymphocytes # 2.4 K/mm3 (0.7-4.5); Mean Corpuscular HGB Conc 32.5 g/dL (31.8-35.4); Mean Corpuscular Hemoglobin 26.3 pg (27.0-31.2); Mean Platelet Volume 8.7 fl (7.4-10.4); Monocytes # 0.5 K/mm3 (0.1-1.0); Neutrophils % 67.4 % (37.0-80.0); Platelet Count 297 K/mm3 (142-424); Red Blood Count 5.09 M/mm3 (4.20-5.40); Red Cell Distribution Width 15.4 % (11.5-17.5); White Blood Count 10.4 K/mm3 (4.8-10.8)
[2021-07-03 22:01] VITALS: BP 155/85; PULSE 69; O2SAT 96
[2021-07-03 22:01] LABS: Chloride 105 mmol/L (98-107); Potassium 3.5 mmoL/L (3.5-5.1); Sodium 138 mmol/L (136-145)
[2021-07-03 22:03] LABS: Alanine Aminotransferase 15 U/L (12-78); Aspartate Amino Transferase 26 U/L (14-36); Blood Urea Nitrogen 11 mg/dl (7-17); Creatinine Clearance Estimated 52 mL/min (50-200); Estimated Glomerular Filt Rate 38 ml/min (>60); GFR (African American) 46 ML/MIN (>60)
[2021-07-03 22:04] LABS: Albumin/Globulin Ratio 1.3 (1.1-1.8); Alkaline Phosphatase 102 U/L (38-126); Anion Gap 11.5 mEq/L (5-15); Bilirubin,Total 0.2 mg/dl (0.2-1.3); Calcium 9.2 mg/dl (8.4-10.2); Carbon Dioxide 25 mmol/L (22.0-30.0); Globulin 3.2 g/dL (1.3-3.2); Glucose 98 mg/dl (74-100); Total Protein,Serum 7.2 g/dl (6.3-8.2)
[2021-07-03 22:10] LABS: C-Reactive Protein 10.6 mg/L (0-4)
[2021-07-03 22:11] LABS: Erythrocyte Sedimentation Rate 14 mm/hr (0-30)
[2021-07-03 22:16] LABS: Uric Acid 4.6 mg/dl (2.5-6.2)
[2021-07-03 22:31] VITALS: BP 142/88; PULSE 66; O2SAT 98
[2021-07-03 22:34] LABS: Procalcitonin 0.055 ng/mL (0.0-2.0)
--- NOTE | 2021-07-03 22:57 | HMH.EDGENADL ---
ED Disposition Clinical Impression: Gout attack Qualifiers: Gout site: knee Gout etiology: idiopathic Laterality: left Qualified Code(s): M10.062 - Idiopathic gout, left knee Disposition: Home, Self-Care Condition on Discharge: Good Instructions: DI for Gout Additional Instructions: stop indocin and use meds and call pcp monday Prescriptions: predniSONE [Prednisone 20mg Tab] 20 mg PO BID #10 tab Transmission Status: Pending to [facility] #[id number] Referrals: Benjamín Arguello MD [Primary Care Provider] - - Critical Care Critical Care Time: No Attestation: On 07/03/21, the high probability of a clinically significant, sudden or life threatening deterioration of the following system(s) required my full and direct attention, intervention and personal management. The time I documented below is in addition to time spent performing reported procedures but includes the following listed in this critical care notation. Medical Decision Making - Medical Records Medical records reviewed: Yes: I reviewed the patient's medical records. - Niraj Inquiry Pt receiving controlled substance: No Vital Signs: 07/03/21 21:09 07/03/21 22:01 07/03/21 22:31 Temperature 97.6 F Temperature Source Oral Pulse Rate 69 66 Pulse Rate [Apical] 73 Respiratory Rate 20 Blood Pressure 155/85 H 142/88 H Blood Pressure [Right Arm] 140/80 Blood Pressure Mean 103 Blood Pressure Mean [Right Arm] 100 Blood Pressure Source [Right Arm] Automatic Cuff Blood Pressure Position [Right Arm] Sitting 02 Sat by Pulse Oximetry 96 96 98 Oxygen Delivery Method Room Air Room Air - Lab Data Lab results reviewed: Yes: I reviewed the patient's lab results. Lab Results 07/03/21 21:21: WBC 10.4, RBC 5.09, Hgb 13.4, Hct 41.2, MCV 81.0, MCH 26.3 L, MCHC 32.5, RDW 15.4, Plt Count 297, MPV 8.7, Neut % (Auto) 67.4, Lymph % (Auto) 23.0, [place] % (Auto) 5.0, Eos % (Auto) 3.8, Baso % (Auto) 0.8, Neut # (Auto) 7.0, Lymph # (Auto) 2.4, [place] # (Auto) 0.5, Eos # (Auto) 0.4, Baso # (Auto) 0.1, ESR 14 07/03/21 21:21: Sodium 138, Potassium 3.5, Chloride 105, Carbon Dioxide 25, Anion Gap 11.5, BUN 11, Creatinine 1.40 H, Estimated Creat Clear 52, Estimated GFR 38 L, Est GFR ( Amer) 46 L, Glucose 98, Uric Acid 4.6, Calcium 9.2, Total Bilirubin 0.2, AST 26, ALT 15, Alkaline Phosphatase 102, C-Reactive Protein 10.6 H, Total Protein 7.2, Albumin 4.0, Globulin 3.2, Albumin/Globulin Ratio 1.3, Procalcitonin 0.055 Result diagrams: 07/03/21 21:21 07/03/21 21:21 Orders (Tests/Meds): ED MEDICATIONS Discontinued Medications Generic Name Dose Route Start Last Admin Trade Name Freq PRN Reason Stop Dose Admin Methylprednisolone Sodium Succinate 125 mg 07/03/21 22:53 Methylprednisolone Sod Succ 125mg Vial IM 07/03/21 22:54 ONCE ONE Medical Decision Narrative: acute excerbation of gout - failed nsaif - nl uric acid General Adult HPI - General Chief complaint: PAIN Stated complaint: Gout L knee, pain down to foot Time Seen by Provider: 07/03/21 22:00 Mode of Arrival: Ambulatory Source of Information: Patient, Medical Record Limitations: No Limitations Description of Symptoms (Recalled from ER Triage Doc. by RN): Patient states that she has been experincing a gout flare up in her left knee for the prior 8 days. States she saw her pcp who started her on endoymycin for the gout but it has not improved. States that today the pain has began to radiate down her left leg and into her left big toe. States that she noted a small amount of redness on the inside of her left knee and on the outside of her left big toe as well, but it has since resolved. - History of Present Illness HPI narrative: hx of gout lt knee - seen [facility] on nsaif Onset (ago): day(s) Location: lower extremity Severity: moderate Associated symptoms: denies other symptoms Treatments prior to arrival: NSAID - Related Data Home Medications
[2021-07-03 23:17] VITALS: BP 134/75; PULSE 61; RESP 16; TEMP 36.8; O2SAT 98
== END 2021-07-03 23:21 | disposition home or self-care (01) ==
PROVIDERS: Emergency Provider Emergency Medicine; PCP Emergency Medicine
DX: M10.062 Idiopathic gout, left knee (principal); J44.9 Chronic obstructive pulmonary disease, unspecified; F33.1 Major depressive disorder, recurrent, moderate; F17.210 Nicotine dependence, cigarettes, uncomplicated; Z88.0 Allergy status to penicillin
CPT/HCPCS: 80053; 84145; 84550; 85025; 85651; 86140; 96372; 99282

== ENCOUNTER → 2021-07-16 13:29 | Outpatient (CLI) | payer OTHER, SELFPAY ==
--- NOTE | 2021-07-16 13:57 | XR_ITS ---
PROCEDURE: XR FOOT LT MIN 3V CLINICAL INDICATION: LT FOOT PAIN COMPARISON: CR FTL3 FOOT-LT-3 VIEWS from 05/25/2016 CR [id number] XR foot RT min 3V from 08/05/2018 CR [id number] XR foot wt bearing LT 3V from 08/21/2018 CR [id number] XR foot wt bearing RT 3V from 08/21/2018 FINDINGS: No obvious fracture or dislocation. A lytic with area is present involving the distal medial aspect of the 1st metatarsal with overlying soft tissue swelling and may represent an area of gout involvement. The bony margin is somewhat less well-defined along the medial aspect of this region. There are mild osteoarthritic changes at the 1st MTP joint IMPRESSION: Lytic changes along the distal and medial aspect of the 1st metatarsal which may be slightly more prominent with overlying soft tissue swelling suggesting gout. Dictated by: William Wells MD 07/16/2021 14:23 William Wells MD in [place] 07/16/2021 14:23
[2021-07-16 14:22] LABS: Basophils # 0.1 K/mm3 (0-0.2); Basophils % 0.5 % (0.1-2.0); Eosinophils # 0.3 K/mm3 (0.0-0.4); Eosinophils % 2.2 % (0.1-12.0); Hematocrit 44.6 % (37.0-47.0); Hemoglobin 14.5 g/dL (12.2-16.2); Lymphocytes # 1.9 K/mm3 (0.7-4.5); Lymphocytes % 14.6 % (10-50); Mean Corpuscular HGB Conc 32.4 g/dL (31.8-35.4); Mean Corpuscular Hemoglobin 26.4 pg (27.0-31.2); Mean Corpuscular Volume 81.4 fl (81-99); Mean Platelet Volume 8.6 fl (7.4-10.4); Monocytes # 0.4 K/mm3 (0.1-1.0); Monocytes % 3.3 % (1.7-9.3); Neutrophils # 10.3 K/mm3 (1.8-7.8); Neutrophils % 79.3 % (37.0-80.0); Platelet Count 287 K/mm3 (142-424); Red Blood Count 5.47 M/mm3 (4.20-5.40); Red Cell Distribution Width 15.1 % (11.5-17.5); White Blood Count 12.9 K/mm3 (4.8-10.8)
[2021-07-16 15:30] LABS: Uric Acid 4.8 mg/dl (2.5-6.2)
== END ==
PROVIDERS: PCP Family Medicine; Visit Provider Nurse Practitioner Family
DX: M79.672 Pain in left foot (principal)
CPT/HCPCS: 36415; 73630; 84550; 85025

== ENCOUNTER 2022-06-09 13:53 | Emergency (ER) | payer OTHER, SELFPAY ==
[2022-06-09 14:20] VITALS: BP 105/66; PULSE 77; RESP 21; TEMP 37.6; O2SAT 97; BMI 30.1
[2022-06-09 14:34] LABS: UTC Influenza A Antigen Negative (Negative)
[2022-06-09 14:35] LABS: UTC Influenza B Antigen Negative (Negative)
--- NOTE | 2022-06-09 14:55 | EXP.UTC ---
Discharge Plan Disposition Patient Disposition: Home, Self-Care Condition: Good Prescriptions Prescriptions: No Action ropinirole 0.5 MG tablet 0.5 mg PO BID indomethacin 50 MG capsule 50 mg PO BID Rx Instructions: administer with food or milk allopurinol 300 MG tablet 300 mg PO DAILY potassium chloride 20 MEQ tablet extended release 20 meq PO DAILY trazodone 100 MG tablet 100 mg PO DAILY sertraline 50 MG tablet 50 mg PO DAILY prednisone 20 MG tablet 20 mg PO BID Qty: 10 0RF aripiprazole 15 MG tablet 7.5 mg PO DAILY Referrals Follow up/Referrals: Zonia Barakat APRN [Primary Care Provider] - See instructions Activity Restrictions/Add. Instructions Additional Instructions/Restrictions: *Monitor Temp, Over the counter Motrin or Tylenol as directed/as needed Tylenol every 4 hours and Motrin every 6 hours (as long as your family doctor has told you that you can take it) for fever or pain. and straight to ER if unable to lower temp less than 101.0 after medication given *Warm salt water gargles may help to soothe the throat *Throat Lozenges? *Warm fluids like tea with honey may help to soothe the throat? *Sleep elevated *Humidifier/Vaporizer Follow up IMMEDIATELY for new or worsening symptoms or no Noticeable improvement over the next 48-72 hours. 911 for difficulty breathing or swallowing If your upper respiratory panel is negative and you are still having symptoms make sure to follow up You were tested for today for Upper Respiratory Panel with COVID19 your test result should be back in the next 24-48 hours, you may check your results on the [facility] Clinical Impressions Clinical Impression: Flu-like symptoms Instructions Patient Instructions: DI for Fever (Symptom) -- Adult, Cough Discharge ED Provider: Kelly Dumas [facility] [place] HPI General Stated complaint: Cough, BA, BROWN, Sweating Mode of Arrival: Ambulatory Source of Information: Patient Limitations: No Limitations Time Seen by Provider: 06/09/22 14:56 Description of Symptoms (Recalled from Triage Doc. by RN): PATIENT C/O COUGH AND BODY ACHES SINCE YESTERDAY HEENT Symptoms (Recalled from RN notes): No Resp Symptoms (Recalled from RN notes): Yes Skin Symptoms (Recalled from RN notes): No MS Symptoms (Recalled from RN notes): No Functional Status (Recalled from RN notes): WNL History of Present Illness Provider Complaint: Patient states that she started yesterday having bodyaches, chills, runny nose and cough States that today she is feeling achy all over like she may have the flu states that it came on fast yesterday she was fine then started getting achy and having chills and she thinks she has the flu Denies SOA Related Data Home Medications Medication Instructions Recorded Confirmed aripiprazole 15 mg tablet 7.5 mg PO DAILY MOOD 12/05/19 07/03/21 allopurinol 300 mg tablet 300 mg PO DAILY gout 07/03/21 07/03/21 indomethacin 50 mg capsule 50 mg PO BID gout 07/03/21 07/03/21 potassium chloride 20 mEq 20 meq PO DAILY vitamin 07/03/21 07/03/21 tablet,extended release insufficiency ropinirole 0.5 mg tablet 0.5 mg PO BID gout 07/03/21 07/03/21 sertraline 50 mg tablet 50 mg PO DAILY Depression 07/03/21 07/03/21 trazodone 100 mg tablet 100 mg PO DAILY Pain 07/03/21 07/03/21 Previous Rx's Medication Instructions Recorded prednisone 20 mg tablet 20 mg PO BID #10 tabs 07/03/21 Allergies Allergy/AdvReac Type Severity Reaction Status Date / Time penicillin G Allergy Mild Rash Verified 03/29/21 15:24 Worker's Comp Is this a Worker's Comp case?: No PFSH PFS Medical History (Updated 06/09/22 @ 15:08 by Kelly Dumas APRN) Anxiety COPD (chronic obstructive pulmonary disease) Depression Vitamin D deficiency (~10/10/17) Surgical History (Updated 06/09/22 @ 14:35 by Alicia Dee RN) History of cholecystectomy History of hysterectomy History o
[2022-06-09 15:13] VITALS: BP 105/66; PULSE 77; RESP 21; TEMP 37.6; O2SAT 97
[2022-06-09 16:02] LABS: Adenovirus,PCR Not Detected (NotDetected); Bordetella Pertussis Not Detected (NotDetected); Chlamydophila Pneumoniae, PCR Not Detected (NotDetected); Coronavirus 19, PCR Not Detected (NotDetected); Coronavirus 229E Not Detected (NotDetected); Coronavirus NL63 Not Detected (NotDetected); Coronavirus OC43 Not Detected (NotDetected); Coronovirus HKU1,PCR Not Detected (NotDetected); Human Metapneumovirus Not Detected (NotDetected); Influenza A, PCR Not Detected (NotDetected); Influenza AH1, 2009 Not Detected (NotDetected); Influenza AH1, PCR Not Detected (NotDetected); Influenza B, PCR Not Detected (NotDetected); Mycoplasma Pneumoniae, PCR Not Detected (NotDetected); Parainfluenza 1, PCR Not Detected (NotDetected); Parainfluenza 2, PCR Not Detected (NotDetected); Parainfluenza 3, PCR Not Detected (NotDetected); Parainfluenza 4, PCR Not Detected (NotDetected); Respiratory Syncytial Virus Not Detected (NotDetected); Rhinovirus/Enterovirus Not Detected (NotDetected)
[2022-06-09 19:08] LABS: Influenza AH3,PCR Detected (NotDetected)
== END 2022-06-09 15:26 | disposition home or self-care (01) ==
PROVIDERS: Emergency Provider Nurse Practitioner; PCP Nurse Practitioner Family
DX: J10.1 Influenza due to other identified influenza virus with other respiratory manifestations (principal)
CPT/HCPCS: 87581; 87632; 87798; 87804; 99212; C9803; G0463; U0003; U0005

== ENCOUNTER 2022-10-24 16:30 | Emergency (ER) | payer OTHER, SELFPAY ==
[2022-10-24 17:10] VITALS: BP 114/72; PULSE 74; RESP 20; TEMP 36.6; O2SAT 97; BMI 30.9
--- NOTE | 2022-10-24 17:40 | EXP.UTC ---
Discharge Plan Disposition Patient Disposition: Home, Self-Care Condition: Good Prescriptions Prescriptions: New azithromycin [Zithromax Z-Juan C] 250 mg tablet See Rx Instructions .ROUTE .COMPLEX 5 Days Qty: 6 0RF Rx Instructions: For 250 mg dose pack: take 500 mg today (day 1), then 250 mg for 4 days (days 2-5) No Action trazodone 100 mg tablet 150 mg PO DAILY Qty: 45 1RF hydroxyzine pamoate [Vistaril] 50 mg capsule 50 mg PO TID PRN (Reason: anxiety) Qty: 90 1RF Vraylar 3 mg capsule 3 mg PO DAILY Referrals Follow up/Referrals: Zonia Barakat APRN [Primary Care Provider] - See instructions Activity Restrictions/Add. Instructions Additional Instructions/Restrictions: *Monitor Temp, Over the counter Motrin or Tylenol as directed/as needed Tylenol every 4 hours and Motrin every 6 hours (as long as your family doctor has told you that you can take it) for fever or pain. and straight to ER if unable to lower temp less than 101.0 after medication given *Warm salt water gargles may help to soothe the throat *Throat Lozenges? *Warm fluids like tea with honey may help to soothe the throat? *Sleep elevated *Humidifier/Vaporizer Take medication as prescribed Follow up IMMEDIATELY for new or worsening symptoms or no Noticeable improvement over the next 48-72 hours. 911 for difficulty breathing or swallowing Clinical Impressions Clinical Impression: Otitis media Qualifiers: Otitis media type: unspecified Laterality: right Qualified Code(s): H66.91 - Otitis media, unspecified, right ear Instructions Patient Instructions: Middle Ear Infection Discharge ED Provider: [place] Dum[place] [facility] [place] General Stated complaint: bilateral ear pain, congestion, h/a, body aches Time Seen by Provider: 10/24/22 17:41 History of Present Illness Provider Complaint: Patient states that she has been having pain in both ears, sinus congestion and pressure, headache and body aches for several weeks States that she was recently on Medication for ear infection but doesnt think it cleared it up well Related Data Home Medications Medication Instructions Recorded Confirmed cariprazine 3 mg capsule (Vraylar) 3 mg PO DAILY bipolar 10/24/22 10/24/22 Previous Rx's Medication Instructions Recorded hydroxyzine pamoate 50 mg capsule 50 mg PO TID PRN anxiety #90 caps 10/04/22 (Vistaril) trazodone 100 mg tablet 150 mg PO DAILY Pain #45 tabs 10/04/22 azithromycin 250 mg tablet See Rx Instructions PO .COMPLEX 5 10/24/22 (Zithromax Z-Juan C) days #6 tabs Allergies Allergy/AdvReac Type Severity Reaction Status Date / Time penicillin G Allergy Mild Rash Verified 10/24/22 17:46 [facility] Disclaimer: The information contained in this section may have been updated after the patient was seen, as this information can be updated by other users. Medical History (Updated 10/24/22 @ 17:45 by Kelly Dumas APRN) Anxiety Bilateral serous otitis media COPD (chronic obstructive pulmonary disease) Depression Insomnia Vitamin D deficiency (~10/10/17) Surgical History (Updated 06/09/22 @ 14:35 by Alicia Dee RN) History of cholecystectomy History of hysterectomy History of tonsillectomy History of tubal ligation Social History (Updated 09/15/22 @ 09:36 by Ana Cristina Rawls APRN) Smoking Status: Former smoker quit date: 09/12/22 second hand exposure: No alcohol intake: never substance use type: denies use current occupational status: disabled and other details: she does work 4-8 hours per week; at [employer] in the last 8 weeks: None adopted: No caregiver/support person: No foster care: No household members: none housing: house lives independently: Yes marital status: number of children: 2 number of grandchildren: 5 education level: high school snf: No 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
[2022-10-24 17:53] VITALS: BP 114/72; PULSE 74; RESP 20; TEMP 36.6; O2SAT 97
== END 2022-10-24 17:53 | disposition home or self-care (01) ==
PROVIDERS: Emergency Provider Nurse Practitioner; PCP Nurse Practitioner Family
DX: H66.91 Otitis media, unspecified, right ear (principal); R51.9 Headache, unspecified; J44.9 Chronic obstructive pulmonary disease, unspecified; F17.201 Nicotine dependence, unspecified, in remission
CPT/HCPCS: 99212; 99214; G0463

== ENCOUNTER → 2023-05-11 10:36 | Outpatient (POV) | payer OTHER, SELFPAY | PROVIDERS: Visit Provider Specialist/Technologist | DX: Z00.00 Encounter for general adult medical examination without abnormal findings (principal) ==

== ENCOUNTER 2023-06-08 10:43 | Emergency (ER) | payer OTHER, SELFPAY ==
[2023-06-08 10:50] VITALS: BP 124/74; PULSE 79; RESP 21; TEMP 36.5; O2SAT 94; BMI 30.9
[2023-06-08 11:06] LABS: UTC Influenza A Antigen Negative (Negative); UTC Influenza B Antigen Negative (Negative)
--- NOTE | 2023-06-08 11:11 | EXP.UTC ---
Discharge Plan Disposition Patient Disposition: Home, Self-Care Condition: Good Prescriptions Prescriptions: New cephalexin 500 mg capsule 500 mg PO BID 10 Days Qty: 20 0RF tobramycin-dexamethasone 0.3-0.1 % drops,suspension 2 drp ophthalmic (eye) QID 7 Days Qty: 5 0RF Rx Instructions: in Left ear as directed No Action diphenhydramine HCl [Benadryl Allergy] 25 mg tablet 25 mg PO HS PRN (Reason: sleep) Qty: 30 1RF Auvelity 45-105 mg tablet,IR,delayed rel,biphasic 1 tab PO BID Qty: 60 2RF diazepam [Valium] 5 mg tablet 5 mg PO BID PRN (Reason: anxiety) Qty: 10 0RF hydroxyzine pamoate [Vistaril] 50 mg capsule 50 mg PO TID PRN (Reason: anxiety) Qty: 90 1RF trazodone 100 mg tablet 150 mg PO DAILY Qty: 45 1RF Vraylar 3 mg capsule 3 mg PO DAILY Referrals Follow up/Referrals: Tanay Levy APRN [Nurse Practitioner] - 06/12/23 11:00 am Zonia Garcia APRN [Primary Care Provider] - See instructions Activity Restrictions/Add. Instructions Additional Instructions/Restrictions: Use the drops in the left ear as directed Take oral Cephalexin as prescribed Follow up with ENT on Monday as scheduled Return if needed Straight to ER if any life threatening symtoms Clinical Impressions Clinical Impression: Infection of both ears Instructions Patient Instructions: How to Instill Ear Drops, Ear Infections (Alternative Therapy), Middle Ear Infection Discharge ED Provider: Kelly Dumas [facility] [place] HPI General Stated complaint: ear pain, cough Mode of Arrival: Ambulatory Source of Information: Patient Limitations: No Limitations Time Seen by Provider: 06/08/23 11:11 Description of Symptoms (Recalled from Triage Doc. by RN): PATIENT C/O BODY ACHES, BILATERAL EAR ACHES, CHILLS, COUGH AND FEVER SINCE MONDAY HEENT Symptoms (Recalled from RN notes): Yes Resp Symptoms (Recalled from RN notes): Yes Skin Symptoms (Recalled from RN notes): No MS Symptoms (Recalled from RN notes): No Functional Status (Recalled from RN notes): WNL History of Present Illness Provider Complaint: Patient states that she started on Monday with severe bilateral ear pain and drainage from left ear she has noticed a foul smell, states that she has been having body aches, chills and fever States that she is having a hard time hearing from her ears feeling stopped up Related Data Home Medications Medication Instructions Recorded Confirmed cariprazine 3 mg capsule (Vraylar) 3 mg PO DAILY bipolar 10/24/22 04/02/23 Previous Rx's Medication Instructions Recorded diazepam 5 mg tablet (Valium) 5 mg PO BID PRN anxiety #10 tabs 01/05/23 dextromethorphan IR 45 1 tab PO BID #60 tabs 01/20/23 mg-bupropion ER 105 mg biphasic tablet (Auvelity) diphenhydramine HCl 25 mg tablet 25 mg PO HS PRN sleep #30 tabs 01/20/23 (Benadryl Allergy) hydroxyzine pamoate 50 mg capsule 50 mg PO TID PRN anxiety #90 caps 03/13/23 (Vistaril) trazodone 100 mg tablet 150 mg PO DAILY Pain #45 tabs 04/19/23 cephalexin 500 mg capsule 500 mg PO BID 10 days #20 caps 06/08/23 tobramycin 0.3 %-dexamethasone 0.1 2 drp ophthalmic (eye) QID 7 days 06/08/23 % eye drops,suspension #5 mL Allergies Allergy/AdvReac Type Severity Reaction Status Date / Time penicillin G Allergy Mild Rash Verified 02/14/23 13:34 Worker's Comp Is this a Worker's Comp case?: No [facility] Disclaimer: The information contained in this section may have been updated after the patient was seen, as this information can be updated by other users. Medical History (Updated 06/08/23 @ 11:36 by Kelly Dumas APRN) Anxiety Bilateral serous otitis media COPD (chronic obstructive pulmonary disease) Depression Insomnia Vitamin D deficiency (~10/10/17) Surgical History History of cholecystectomy History of hysterectomy History of tonsillectomy History of tubal ligation Social History (Reviewed 10/24/22
[2023-06-08 11:37] VITALS: BP 124/74; PULSE 79; RESP 21; TEMP 36.5; O2SAT 94
== END 2023-06-08 11:40 | disposition home or self-care (01) ==
PROVIDERS: Emergency Provider Nurse Practitioner; PCP Nurse Practitioner Family
DX: H66.93 Otitis media, unspecified, bilateral (principal); R50.9 Fever, unspecified; J44.9 Chronic obstructive pulmonary disease, unspecified; F41.1 Generalized anxiety disorder; F32.A Depression, unspecified; Z87.891 Personal history of nicotine dependence
CPT/HCPCS: 87804; 99212; 99214; G0463

== ENCOUNTER → 2023-07-11 11:46 | Outpatient (CLI) | payer OTHER, SELFPAY ==
--- NOTE | 2023-07-11 12:01 | ECG_ITS ---
APPROVED REPORT Exam: Resting ECG HR:60 bpm ECG Measurements Heart Rate 60 AXES GA 170 P 11 QRSd 104 QRS 98 QT 448 T 75 QTc 448 Conclusion SINUS RHYTHM INDETERMINATE AXIS LOW QRS VOLTAGE IN PRECORDIAL LEADS [QRS DEFLECTION < 1.0 mV IN CHEST LEADS] PATTERN CONSISTENT WITH PULMONARY DISEASE ABNORMAL ECG UNCONFIRMED REPORT Electronically signed by : Dion Penny MD 07/12/2023 13:23:26
[2023-07-11 12:14] LABS: Basophils # 0.1 K/mm3 (0-0.2); Basophils % 0.6 % (0.1-2.0); Eosinophils # 0.3 K/mm3 (0.0-0.4); Eosinophils % 3.1 % (0.1-12.0); Hematocrit 48.2 % (37.0-47.0); Lymphocytes # 2.3 K/mm3 (0.7-4.5); Mean Corpuscular HGB Conc 33.2 g/dL (31.8-35.4); Mean Corpuscular Hemoglobin 29.4 pg (27.0-31.2); Mean Corpuscular Volume 88.4 fl (81-99); Mean Platelet Volume 8.7 fl (7.4-10.4); Monocytes # 0.4 K/mm3 (0.1-1.0); Neutrophils # 5.6 K/mm3 (1.8-7.8); Neutrophils % 64.3 % (37.0-80.0); Platelet Count 209 K/mm3 (142-424); Red Blood Count 5.46 M/mm3 (4.20-5.40); Red Cell Distribution Width 15.7 % (11.5-17.5); White Blood Count 8.7 K/mm3 (4.8-10.8)
[2023-07-11 12:44] LABS: Alanine Aminotransferase 22 U/L (12-78); Albumin Level 3.9 g/dl (3.5-5.0); Albumin/Globulin Ratio 1.2 (1.1-1.8); Alkaline Phosphatase 80 U/L (38-126); Aspartate Amino Transferase 22 U/L (14-36); Bilirubin,Total 0.4 mg/dl (0.2-1.3); Blood Urea Nitrogen 15 mg/dl (7-17); Calcium 8.7 mg/dl (8.4-10.2); Carbon Dioxide 26 mmol/L (22.0-30.0); Chloride 105 mmol/L (98-107); Estimated Glomerular Filt Rate 35 ml/min (>60); GFR (African American) 42 ML/MIN (>60); Globulin 3.2 g/dL (1.3-3.2); Glucose 136 mg/dl (74-100); Total Protein,Serum 7.1 g/dl (6.3-8.2)
[2023-07-11 12:55] LABS: Anion Gap 9.9 mEq/L (5-15); Sodium 138 mmol/L (136-145)
[2023-07-11 12:56] LABS: Potassium 2.9 mmoL/L (3.5-5.1)
== END ==
PROVIDERS: PCP Nurse Practitioner Family; Visit Provider Otolaryngology
DX: H65.90 Unspecified nonsuppurative otitis media, unspecified ear; Z01.818 Encounter for other preprocedural examination
CPT/HCPCS: 36415; 80053; 85025; 93005

== ENCOUNTER 2023-07-17 09:12 | Day surgery (SDC) | payer OTHER, SELFPAY ==
[2023-07-14 10:22] VITALS: BMI 31.8
[2023-07-17] VITALS (8 sets, daily range): BP systolic 89–113; BP diastolic 55–69; PULSE 54–68; RESP 14–18; TEMP 36.1–36.6; O2SAT 93–98
[2023-07-17 10:14] LABS: Chloride 107 mmol/L (98-107); Potassium 3.3 mmoL/L (3.5-5.1); Sodium 139 mmol/L (136-145)
[2023-07-17 10:16] LABS: Alanine Aminotransferase 27 U/L (12-78); Alkaline Phosphatase 92 U/L (38-126); Anion Gap 7.3 mEq/L (5-15); Aspartate Amino Transferase 31 U/L (14-36); Bilirubin,Total 0.7 mg/dl (0.2-1.3); Blood Urea Nitrogen 9 mg/dl (7-17); Carbon Dioxide 28 mmol/L (22.0-30.0); Creatinine Clearance Estimated 52 mL/min (50-200); Estimated Glomerular Filt Rate 38 ml/min (>60); GFR (African American) 46 ML/MIN (>60)
[2023-07-17 10:17] LABS: Albumin Level 4.3 g/dl (3.5-5.0); Albumin/Globulin Ratio 1.2 (1.1-1.8); Calcium 9.1 mg/dl (8.4-10.2); Globulin 3.6 g/dL (1.3-3.2); Glucose 114 mg/dl (74-100); Total Protein,Serum 7.9 g/dl (6.3-8.2)
--- NOTE | 2023-07-17 12:35 | P.OP_ITS ---
Date of procedure: 07/17/23 Pre-op Diagnosis:: Chronic serous otitis media Post-op Diagnosis:: Same Procedure performed:: Bilateral myringotomy with tube placed Surgeon:: Nakul Lozada III, MD [employer]:: Arik Betancur Anesthesia: GETA Estimated blood loss (mL): 5 Operative findings:: Bilateral serous effusion noted Operative note:: Patient was brought to the operating placed under general endotracheal anesthesia with an LMA device. The left external auditory canal was cleaned and inspected under the microscope. She had severe retraction of the drum and this incision was made inferiorly tympanic membrane and serous effusion was aspirated from the middle ear space. A Chase bobbin tube was placed through the incision followed by antibiotic drops. Similar procedure with similar findings was noted on the right side. Once this was completed the patient was then awakened in the operating room taken recovery in good condition Condition: stable Disposition: PACU Complications:: none
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
--- NOTE | 2023-07-17 12:41 | EXP.ANES.I ---
[facility] Anesthesia Record Part I Anesthesia Record I Intake, IV Amount: 300 Hydration: Adequate Estimated blood loss (mL): 0 Urine output (mL): 0 Blood Products used (#): none Blood Pressure: 100/64 SaO2: 93 Pulse Rate: 56 Airway Patency: Patent Respiratory Rate: 16 Temperature: 97.9 F Patient is:: Drowsy and Stable Stable to PACU at:: 12:35
--- NOTE | 2023-07-18 08:37 | P.PNANES_ITS ---
[facility] [place] Anesthesia Record Part II Anesthesia Record Part II Discharge Time: 13:05 Destination: Surgical Day Care (OP Surgery) PACU nurse assessment reviewed?: Yes Patient Condition:: Good Anesthesia Complications:: None Swallowing reflex intact?: Yes Airway Patency: Patent Cyanosis?: No Blood Pressure: 91/55 SaO2: 95 Respiratory Rate: 16 Pulse Rate: 59 Temperature: 97 F Mental Status: Alert & Oriented Pain level:: 0 Nausea and/or vomitting:: None Intake, IV Amount: 0 Hydration: Adequate
[2023-07-18 08:38] VITALS: BP 91/55; PULSE 59; RESP 16; TEMP 36.1; O2SAT 95
== END 2023-07-17 13:30 | disposition home or self-care (01) ==
PROVIDERS: PCP Nurse Practitioner Family; Visit Provider Otolaryngology
PROC: (CPT 69436; principal; 2023-07-17 10:45)
DX: H65.23 Chronic serous otitis media, bilateral (principal)
CPT/HCPCS: 69436; 80053; J2405

== ENCOUNTER 2023-08-14 02:40 | Emergency (ER) | payer MEDICARE, SELFPAY ==
[2023-08-14] VITALS (9 sets, daily range): BP systolic 90–126; BP diastolic 57–74; PULSE 55–74; RESP 13–22; TEMP 36.5–36.6; O2SAT 93–98; BMI 31.5
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
[2023-08-14 02:52] LABS: Basophils # 0.1 K/mm3 (0-0.2); Basophils % 0.8 % (0.1-2.0); Eosinophils # 0.2 K/mm3 (0.0-0.4); Eosinophils % 2.6 % (0.1-12.0); Hematocrit 51.8 % (37.0-47.0); Hemoglobin 16.9 g/dL (12.2-16.2); Lymphocytes # 3.1 K/mm3 (0.7-4.5); Lymphocytes % 37.2 % (10-50); Mean Corpuscular HGB Conc 32.5 g/dL (31.8-35.4); Mean Platelet Volume 9.2 fl (7.4-10.4); Monocytes # 0.4 K/mm3 (0.1-1.0); Monocytes % 4.6 % (1.7-9.3); Neutrophils # 4.6 K/mm3 (1.8-7.8); Neutrophils % 54.8 % (37.0-80.0); Platelet Count 227 K/mm3 (142-424); Red Blood Count 5.82 M/mm3 (4.20-5.40); Red Cell Distribution Width 14.8 % (11.5-17.5); White Blood Count 8.3 K/mm3 (4.8-10.8)
[2023-08-14] MEDS: METHYLPREDNISOLONE SOD SUCC 125MG VIAL 125 MG IV (02:57)
[2023-08-14] MEDS: FAMOTIDINE 20MG/2ML VIAL 20 MG IV (02:57)
[2023-08-14] MEDS: diphenhydrAMINE 50MG/ML VIAL 25 MG IV (02:58)
[2023-08-14] MEDS: ONDANSETRON 4MG/2ML VIAL 4 MG IV (02:59)
[2023-08-14] MEDS: EPINEPHrine 1 MG/ML AMPUL 0.299999999999999989 MG IM (02:59)
[2023-08-14] MEDS: 0.9 % SODIUM CHLORIDE 1000ML 1,000 ML 999 ML IV (03:00)
[2023-08-14 03:02] LABS: Alanine Aminotransferase 24 U/L (12-78); Albumin Level 3.8 g/dl (3.5-5.0); Albumin/Globulin Ratio 1.1 (1.1-1.8); Alkaline Phosphatase 80 U/L (38-126); Anion Gap 15.7 mEq/L (5-15); Aspartate Amino Transferase 32 U/L (14-36); Bilirubin,Total 0.5 mg/dl (0.2-1.3); Blood Urea Nitrogen 19 mg/dl (7-17); Calcium 9.4 mg/dl (8.4-10.2); Carbon Dioxide 19 mmol/L (22.0-30.0); Chloride 104 mmol/L (98-107); Creatinine Clearance Estimated 45 mL/min (50-200); Estimated Glomerular Filt Rate 32 ml/min (>60); GFR (African American) 39 ML/MIN (>60); Globulin 3.5 g/dL (1.3-3.2); Glucose 163 mg/dl (74-100); Sodium 136 mmol/L (136-145); Total Protein,Serum 7.3 g/dl (6.3-8.2)
[2023-08-14 03:03] LABS: Potassium 2.7 mmoL/L (3.5-5.1)
--- NOTE | 2023-08-14 03:13 | ECG_ITS ---
APPROVED REPORT Exam: Resting ECG HR:58 bpm ECG Measurements Heart Rate 58 AXES WI 174 P 14 QRSd 104 QRS 248 QT 214 T 0 QTc 210 Conclusion SINUS BRADYCARDIA INDETERMINATE AXIS LOW QRS VOLTAGE IN PRECORDIAL LEADS [QRS DEFLECTION < 1.0 mV IN CHEST LEADS] PATTERN CONSISTENT WITH PULMONARY DISEASE ABNORMAL ECG UNCONFIRMED REPORT Electronically signed by : Dion Penny MD 08/14/2023 17:48:02
[2023-08-14] MEDS: KCl 10mEq/100ml 100 ML 100 MEQ IV ×3 (03:15→05:31)
[2023-08-14 03:33] LABS: Magnesium 1.9 mg/dl (1.6-2.3)
[2023-08-14] MEDS: 0.9 % SODIUM CHLORIDE 1000ML 1,000 ML 500 ML IV (04:21)
== END 2023-08-14 06:48 | disposition home or self-care (01) ==
PROVIDERS: Emergency Provider Emergency Medicine
DX: T78.2XXA Anaphylactic shock, unspecified, initial encounter (principal); E87.6 Hypokalemia; R00.1 Bradycardia, unspecified; R10.9 Unspecified abdominal pain; R11.0 Nausea; J44.9 Chronic obstructive pulmonary disease, unspecified; F17.210 Nicotine dependence, cigarettes, uncomplicated
CPT/HCPCS: 80053; 83735; 85025; 93005; 96361; 96365; 96366; 96372; 96375; 99291; J2405

== ENCOUNTER 2023-10-03 14:39 | Outpatient (CLI) | payer MEDICARE, SELFPAY ==
[2023-10-03 18:34] LABS: Basophils # 0.1 K/mm3 (0-0.2); Basophils % 0.4 % (0.1-2.0); Eosinophils # 0.2 K/mm3 (0.0-0.4); Eosinophils % 1.5 % (0.1-12.0); Hematocrit 46.2 % (37.0-47.0); Hemoglobin 14.7 g/dL (12.2-16.2); Lymphocytes # 2.1 K/mm3 (0.7-4.5); Lymphocytes % 18.4 % (10-50); Mean Corpuscular HGB Conc 31.8 g/dL (31.8-35.4); Mean Corpuscular Hemoglobin 28.8 pg (27.0-31.2); Mean Corpuscular Volume 90.6 fl (81-99); Monocytes # 0.7 K/mm3 (0.1-1.0); Monocytes % 5.8 % (1.7-9.3); Neutrophils # 8.5 K/mm3 (1.8-7.8); Neutrophils % 73.9 % (37.0-80.0); Platelet Count 234 K/mm3 (142-424); Red Cell Distribution Width 15.3 % (11.5-17.5); White Blood Count 11.4 K/mm3 (4.8-10.8)
[2023-10-03 18:51] LABS: Alanine Aminotransferase 22 U/L (12-78); Albumin Level 3.8 g/dl (3.5-5.0); Albumin/Globulin Ratio 1.2 (1.1-1.8); Alkaline Phosphatase 102 U/L (38-126); Anion Gap 9.6 mEq/L (5-15); Aspartate Amino Transferase 31 U/L (14-36); Bilirubin,Total 0.4 mg/dl (0.2-1.3); Blood Urea Nitrogen 14 mg/dl (7-17); Calcium 9.3 mg/dl (8.4-10.2); Carbon Dioxide 26 mmol/L (22.0-30.0); Chloride 107 mmol/L (98-107); Chol/HDL Ratio 8.6 (1-3.5); Cholesterol 293 mg/dl (140-200); Estimated Glomerular Filt Rate 38 ml/min (>60); GFR (African American) 46 ML/MIN (>60); Globulin 3.1 g/dL (1.3-3.2); Glucose 89 mg/dl (74-100); HDL Cholesterol 34 mg/dl (40-60); Potassium 3.6 mmoL/L (3.5-5.1); Sodium 139 mmol/L (136-145); Total Protein,Serum 6.9 g/dl (6.3-8.2); Triglycerides 282 mg/dl (30-150); VLDL Cholesterol 56 mg/dL (0-40)
[2023-10-03 19:02] LABS: Direct LDL Cholesterol 189.16 mg/dL (100-129)
[2023-10-03 19:09] LABS: 25-OH Vitamin D, Total 15.7 ng/mL (30-100)
[2023-10-03 19:22] LABS: Thyroid Stimulating Hormone 0.59 uIU/mL (0.465-4.68)
[2023-10-03 19:41] LABS: Vitamin B12 201 pg/mL (239-931)
[2023-10-03 20:16] LABS: Iron 70 ug/dL (37-170)
[2023-10-03 20:27] LABS: Total Iron Binding Capacity 463 ug/dL (265-497)
[2023-10-03 21:25] LABS: Creatinine,Urine Random 54 mg/dL (Not Estab.)
[2023-10-03 21:29] LABS: Microalbumin < 6.000 mg/L (0-16.7)
== END 2023-10-03 23:59 ==
LOC: RT 14:40
PROVIDERS: PCP Nurse Practitioner Family; Visit Provider Nurse Practitioner Family
DX: E87.6 Hypokalemia (principal); R53.83 Other fatigue; E78.5 Hyperlipidemia, unspecified; E55.9 Vitamin D deficiency, unspecified; R00.2 Palpitations; D72.829 Elevated white blood cell count, unspecified; D51.9 Vitamin B12 deficiency anemia, unspecified
CPT/HCPCS: 80053; 80061; 82043; 82306; 82570; 82607; 83540; 83550; 84443; 85025; 93225

== ENCOUNTER 2023-10-08 12:18 | Emergency (ER) | payer MEDICARE, SELFPAY ==
[2023-10-08] VITALS (8 sets, daily range): BP systolic 84–119; BP diastolic 48–68; PULSE 56–81; RESP 9–20; TEMP 36.9; O2SAT 93–96; BMI 31.5
--- NOTE | 2023-10-08 12:15 | ECG_ITS ---
APPROVED REPORT Exam: Resting ECG HR:79 bpm ECG Measurements Heart Rate 79 AXES MS 156 P 23 QRSd 102 QRS -39 QT 424 T 76 QTc 458 Conclusion SINUS RHYTHM Electronically signed by : TIFFANY JONES, 10/08/2023 13:10:56
--- NOTE | 2023-10-08 12:20 | XR_ITS ---
PROCEDURE INFORMATION: Exam: XR Chest Exam date and time: 10/08/2023 12:27 PM Age: 63 years old Clinical indication: Sternal or substernal pain; Additional info: Cp TECHNIQUE: Imaging protocol: Radiologic exam of the chest. Views: 1 view. COMPARISON: CR XR CHEST PORTABLE 11/29/2019 2:28 PM FINDINGS: Lungs: No evidence of acute airspace infiltrate. No pulmonary edema. Pleural spaces: No significant pleural effusion. No pneumothorax. Heart/Mediastinum: Cardiomediastinal silouhette is within normal limits. Bones/joints: No evidence of acute osseous abnormality. IMPRESSION: No acute findings.
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
[2023-10-08 12:44] LABS: Alanine Aminotransferase 30 U/L (12-78); Albumin Level 4.3 g/dl (3.5-5.0); Albumin/Globulin Ratio 1.3 (1.1-1.8); Alkaline Phosphatase 102 U/L (38-126); Anion Gap 11.3 mEq/L (5-15); Aspartate Amino Transferase 36 U/L (14-36); Bilirubin,Total 0.6 mg/dl (0.2-1.3); Blood Urea Nitrogen 13 mg/dl (7-17); Calcium 9.5 mg/dl (8.4-10.2); Carbon Dioxide 26 mmol/L (22.0-30.0); Chloride 106 mmol/L (98-107); Creatinine Clearance Estimated 52 mL/min (50-200); Estimated Glomerular Filt Rate 38 ml/min (>60); GFR (African American) 46 ML/MIN (>60); Globulin 3.4 g/dL (1.3-3.2); Glucose 130 mg/dl (74-100); Potassium 3.3 mmoL/L (3.5-5.1); Sodium 140 mmol/L (136-145); Total Protein,Serum 7.7 g/dl (6.3-8.2)
[2023-10-08] MEDS: ONDANSETRON 4MG/2ML VIAL 4 MG IV (12:48)
[2023-10-08 12:56] LABS: NT Pro Brain Natriuretic Pep. 47.2 pg/mL (0-125)
[2023-10-08 12:58] LABS: Troponin I < 0.01 ng/ml (0.00-0.034)
[2023-10-08 12:59] LABS: Basophils # 0.1 K/mm3 (0-0.2); Basophils % 0.9 % (0.1-2.0); Eosinophils # 0.2 K/mm3 (0.0-0.4); Eosinophils % 1.9 % (0.1-12.0); Hematocrit 48.8 % (37.0-47.0); Hemoglobin 15.6 g/dL (12.2-16.2); Lymphocytes # 2.3 K/mm3 (0.7-4.5); Lymphocytes % 21.9 % (10-50); Mean Corpuscular Hemoglobin 28.9 pg (27.0-31.2); Mean Corpuscular Volume 90.3 fl (81-99); Mean Platelet Volume 9.8 fl (7.4-10.4); Monocytes # 0.6 K/mm3 (0.1-1.0); Monocytes % 5.9 % (1.7-9.3); Neutrophils # 7.1 K/mm3 (1.8-7.8); Neutrophils % 69.2 % (37.0-80.0); Platelet Count 238 K/mm3 (142-424); Red Cell Distribution Width 15.4 % (11.5-17.5); White Blood Count 10.2 K/mm3 (4.8-10.8)
[2023-10-08] MEDS: POTASSIUM CHLORIDE 20MEQ TAB 40 MEQ PO (13:07)
--- NOTE | 2023-10-08 14:13 | PC.NURSE ---
Dr. Velazco at BS to update pt/family
--- NOTE | 2023-10-08 14:16 | PC.NURSE ---
Lunch tray ordered for pt
--- NOTE | 2023-10-08 14:38 | PC.NURSE ---
Pt provided with lunch tray
--- NOTE | 2023-10-08 14:51 | PC.NURSE ---
second trop lab drawn from line and sent to lab
[2023-10-08 15:18] LABS: Troponin I < 0.01 ng/ml (0.00-0.034)
== END 2023-10-08 15:49 | disposition home or self-care (01) ==
PROVIDERS: Emergency Provider Emergency Medicine; PCP Nurse Practitioner Family
DX: R55 Syncope and collapse (principal); R11.0 Nausea; R00.2 Palpitations; E87.6 Hypokalemia
CPT/HCPCS: 71045; 80053; 83880; 84484; 85025; 93005; 96374; 99284; J2405

== ENCOUNTER 2023-10-12 12:15 | Outpatient (CLI) | payer MEDICARE, SELFPAY | END 2023-10-12 23:59 | LOC: RT 12:15 | PROVIDERS: PCP Nurse Practitioner Family; Visit Provider Physician Assistant | DX: R00.2 Palpitations (principal); N18.9 Chronic kidney disease, unspecified; E78.5 Hyperlipidemia, unspecified; R53.83 Other fatigue; R42 Dizziness and giddiness; R60.9 Edema, unspecified; R06.00 Dyspnea, unspecified; R07.9 Chest pain, unspecified; R94.31 Abnormal electrocardiogram [ECG] [EKG]; R55 Syncope and collapse; F17.210 Nicotine dependence, cigarettes, uncomplicated | CPT/HCPCS: 93270 ==

== ENCOUNTER 2023-10-19 10:29 | Outpatient (CLI) | payer MEDICARE, MEDICAID, SELFPAY ==
--- NOTE | 2023-10-19 10:53 | XR_ITS ---
FINAL REPORT TECHNIQUE: 8 views cervical spine including flexion and extension views CLINICAL HISTORY: neck pain COMPARISON: None FINDINGS: CERVICAL SPINE: Multiple views of the cervical spine were obtained including flexion and extension views. Mild and moderate degenerative changes present. Multilevel facet osteoarthropathy is noted. There is no movement in the cervical vertebral bodies during flexion or extension. There is mild right C3-4 neural foraminal narrowing. No acute bony abnormality is identified, and no prevertebral soft tissue swelling is present. IMPRESSION: Mild to moderate degenerative change with multilevel facet osteoarthropathy. Mild right C3-4 neural foraminal narrowing. Reviewed, Interpreted and Dictated by Marcial Ward III, MD Transcribed by Temi Cyr Authenticated and . [facility]
[2023-10-19 12:30] LABS: Iron 75 ug/dL (37-170)
[2023-10-19 12:39] LABS: Total Iron Binding Capacity 486 ug/dL (265-497)
[2023-10-19 13:06] LABS: Ferritin 8.24 ng/ml (11.1-264)
[2023-10-19 14:00] LABS: Hemoglobin A1C 5.8 % (4.0-6.0)
[2023-10-20 15:27] LABS: Rapid Plasma Reagin Ab Titer Non Reactive titer (NonRea<1:1)
[2023-10-23 10:14] LABS: Antinuclear Antibodies (ANA) Negative
== END 2023-10-19 23:59 ==
PROVIDERS: Visit Provider Nurse Practitioner Family
DX: E83.10 Disorder of iron metabolism, unspecified (principal); R73.9 Hyperglycemia, unspecified; R29.2 Abnormal reflex; G93.40 Encephalopathy, unspecified; F39 Unspecified mood [affective] disorder; M54.2 Cervicalgia; G89.29 Other chronic pain
CPT/HCPCS: 36415; 72052; 82728; 83036; 83540; 83550; 86038; 86225; 86235; 86593

== ENCOUNTER 2023-10-30 16:03 | Outpatient (POV) | payer MEDICARE, MEDICAID, SELFPAY | END 2023-10-30 23:59 | disposition home or self-care (01) | LOC: SC 16:04 | PROVIDERS: Visit Provider Specialist/Technologist | DX: Z00.00 Encounter for general adult medical examination without abnormal findings (principal) ==

== ENCOUNTER 2023-11-09 15:51 | Outpatient (CLI) | payer MEDICARE, MEDICAID, SELFPAY ==
--- NOTE | 2023-11-09 16:01 | MR_ITS ---
FINAL REPORT CLINICAL HISTORY: seizure FINDINGS: Multiplanar MR imaging of the brain was performed without and with contrast. There is no evidence of intracranial hemorrhage or mass. No abnormal extra-axial fluid collection is seen. The ventricular size is within normal limits. There is no evidence of shift of the midline structures. The posterior fossa and brainstem have an unremarkable appearance. No area of abnormal restricted diffusion is identified. No abnormal contrast enhancement is seen. Normal major vessel vascular flow voids are noted. IMPRESSION: No acute intracranial abnormality identified. Authenticated and [facility]
[2023-11-09 16:18] LABS: Blood Urea Nitrogen 17 mg/dl (7-17); Estimated Glomerular Filt Rate 35 ml/min (>60); GFR (African American) 42 ML/MIN (>60)
[2023-11-09] MEDS: GADOTERIDOL INJ 17ML SYRINGE 16 ML IV (17:10)
[2023-11-09] MEDS: SODIUM CHLORIDE 0.9% 10ML SYR (RAD ONLY) 10 ML IV (17:10)
== END 2023-11-09 23:59 ==
PROVIDERS: PCP Nurse Practitioner Family; Visit Provider Nurse Practitioner Family
DX: G93.40 Encephalopathy, unspecified (principal); F39 Unspecified mood [affective] disorder; R29.2 Abnormal reflex; M54.2 Cervicalgia; G89.29 Other chronic pain
CPT/HCPCS: 36415; 70553; 82565; 84520; A9576

== ENCOUNTER 2024-01-16 06:55 | Outpatient (CLI) | payer MEDICARE, MEDICAID, SELFPAY | END 2024-01-16 23:59 | disposition home or self-care (01) | LOC: LAB.DROPOF 01-18 06:56 | PROVIDERS: PCP Nurse Practitioner; Visit Provider Nurse Practitioner | DX: H66.91 Otitis media, unspecified, right ear (principal); B95.7 Other staphylococcus as the cause of diseases classified elsewhere; B96.89 Other specified bacterial agents as the cause of diseases classified elsewhere | CPT/HCPCS: 87070; 87077 ==